=== PATIENT | male | born 1950 | race Caucasian/White ===

== ENCOUNTER 2020-11-02 09:07 | Day surgery (SDC) | payer OTHER ==
[~2020-11-02] VITALS: Ht 182.9 cm; Wt 118.0 kg
[~2020-11-02 09:07] MED LIST: AMLO10 PO; ATOR40TA PO; Actos45 MG PO; Aspir 8181 MG PO; GLUCOPHAGE1000 M1 PO; LISI20 PO; MAGNESIUM OXID500 MG PO; TRAZ50 PO; ZESTORETIC 20-1 EAC1 PO
--- NOTE | 2020-11-02 12:29 | NUR ---
PATIENT ARRIVED TO [facility] RO[facility] A&O. RIGHT RADIAL SITE SOFT AND NONTEMNDER. TR BAND IN PLACE WITH 12CC AIR. HAND WARM TO TOUCH. WRIST BOARD IN PLACE. PATIEN HAS CHRONIC RIGHT SHOULDER PAIN.
--- NOTE | 2020-11-02 13:04 | NUR ---
PATIENT UP TO REST ROOM. RIGHT RADIAL SITE REMAINS STABLE
--- NOTE | 2020-11-02 13:52 | NUR ---
ASSUMED CARE OF PATIENT FROM SHALINI SARAH RN. ANGELITOAR RECEIVED. VVS. PATIENT IN A RECLINER ON THE MONITOR AND NO PAIN NOTED. TR BAND IN PLACE TO THE RIGHT RADIAL. MEENA IN PLACE TO THE RIGHT FOREARM (VENOUS SITE). STABLE, NO BLEEDING NOTED. CALL LIGHT IN REACH.
--- NOTE | 2020-11-02 14:07 | NUR ---
BEGAN TAKING AIR OUT OF THE TR BAND AT 1400. NO BLEEDING NOTED. REVIEWED ALL DISCHARGE INSTRUCTIONS REVIEWED WITH THE PATIENT AND HE SIGNED ALL PAPERWORK AND COPIES GIVEN TO THE PATIENT INCLUDING FOLLOW UP APPOINTMENT. THE SURGEONS OFFICE FROM [facility] WILL CALL TO SET UP AN APPOINTMENT FOR HIS SURGICAL CONSULT.
--- NOTE | 2020-11-02 14:56 | NUR ---
PATIENT UP AND DRESSED SELF. PIV REMOVED AND PRESSURE DRESSING APPLIED. TR BAND REMOVED AND SITE CLEANED AND CLOTH DOT APPLIED. RIGHT BRACHIAL SITE DRESSING CHANGED AND CLOTH DOT APPLIED TO THE RIGHT BRACHIAL SITE ALSO. PATIENT TOLERATED WELL. ALL BELONGINGS GATHERED. DISCHARGE INSTRUCTIONS IN HAND WITH FOLLOW UP APPOINTMENT. DISCHARGED HOME VIA WHEELCHAIR AT 1515
== END 2020-11-02 16:23 | disposition home or self-care (01) ==
LOC: MHTC 09:07
DX: I25.119 Atherosclerotic heart disease of native coronary artery with unspecified angina pectoris (principal); I10 Essential (primary) hypertension; E11.9 Type 2 diabetes mellitus without complications; E78.00 Pure hypercholesterolemia, unspecified; I49.5 Sick sinus syndrome; G47.33 Obstructive sleep apnea (adult) (pediatric); F12.90 Cannabis use, unspecified, uncomplicated; E66.01 Morbid (severe) obesity due to excess calories; Z79.82 Long term (current) use of aspirin; Z79.84 Long term (current) use of oral hypoglycemic drugs; Z68.34 Body mass index [BMI] 34.0-34.9, adult; Z85.46 Personal history of malignant neoplasm of prostate
CPT/HCPCS: 76937; 85347; 93005; 93010; 93456; 93460; 93571; 99152; 99153; A9270; C1769; C1887; C1894; J0360; J2250; J3010; J7030; J7050; Q9967

== ENCOUNTER 2020-11-03 01:01 | Emergency (ER) | payer OTHER ==
[~2020-11-03] VITALS: Ht 182.9 cm; Wt 113.4 kg
[2020-11-03 01:46] LABS: BASOPHILS ABSOLUTE AUTO 0.05 K/mm3 (0.00-0.23); BASOPHILS PERCENT AUTO 1 % (0-2); EOSINOPHILS ABSOLUTE AUTO 0.38 K/mm3 (0.00-0.68); EOSINOPHILS PERCENT AUTO 4 % (0-6); Hematocrit 36.2 % (37.0-53.0); Hemoglobin 12.3 g/dL (13.5-17.5); IMMATURE GRAN ABSOLUTE AUTO 0.05 K/mm3 (0.00-0.10); IMMATURE GRAN PERCENT AUTO 1 % (0-1); LYMPHOCYTES ABSOLUTE AUTO 0.57 K/mm3 (0.84-5.20); LYMPHOCYTES PERCENT AUTO 6 % (21-46); MONOCYTES ABSOLUTE AUTO 0.66 K/mm3 (0.16-1.47); MONOCYTES PERCENT AUTO 7 % (4-13); Mean Corpuscular HGB 29.2 pg (26.0-34.0); Mean Corpuscular Volume 86 fL (80-100); Mean Platelet Volume 9.5 fL (9.1-12.4); NEUTROPHILS ABSOLUTE AUTO 7.29 K/mm3 (1.96-9.15); NEUTROPHILS PERCENT AUTO 81 % (41-73); Platelet Count 298 K/mm3 (150-400); RDW Coefficient Variation 13.5 % (11.7-14.2); RDW Standard Deviation 42.6 fL (35.1-46.3); Red Blood Cell Count 4.21 M/mm3 (4.30-5.90)
[2020-11-03 02:17] LABS: Alanine Aminotransfer (ALT/SGP 61 U/L (12-78); Albumin, Blood 3.7 g/dL (3.4-5.0); Albumin/Globulin Ratio 1.1 (0.8-1.8); Alk Phos 114 U/L (50-136); Anion Gap 7 mmol/L (6-16); Aspartate Aminotrans (AST/SGOT 63 U/L (12-37); Bilirubin, Total 0.2 mg/dL (0.1-1.0); Blood Urea Nitrogen 22 mg/dL (8-24); Bun/Creatinine Ratio 22.3 (12.0-20.0); CO2, Blood 26 mmol/L (21-32); Calcium, Blood 8.6 mg/dL (8.5-10.1); Chloride, Blood 101 mmol/L (98-108); Creatinine, Blood 0.99 mg/dL (0.60-1.20); Globulin, Blood 3.4 g/dL (2.2-4.0); Glomerular Filtration Rate >60 (60-); Glucose, Blood 350 mg/dL (70-99); Potassium, Blood 3.3 mmol/L (3.5-5.5); Sodium, Blood 134 mmol/L (136-145); Total Protein, Blood 7.1 g/dL (6.4-8.2)
== END 2020-11-03 03:57 | disposition home or self-care (01) ==
LOC: ER 01:01
PROVIDERS: Emergency Medicine
DX: R07.9 Chest pain, unspecified (principal); Z79.84 Long term (current) use of oral hypoglycemic drugs; Z79.82 Long term (current) use of aspirin; Z79.899 Other long term (current) drug therapy
CPT/HCPCS: 36415; 80053; 84484; 85025; 93005; 93010; 96374; 96375; 99285-25; J3010

== ENCOUNTER 2020-11-08 01:57 | Emergency (ER) | payer OTHER ==
[~2020-11-08] VITALS: Ht 182.9 cm; Wt 115.7 kg
[2020-11-08 02:24] LABS: BASOPHILS ABSOLUTE AUTO 0.04 K/mm3 (0.00-0.23); BASOPHILS PERCENT AUTO 1 % (0-2); EOSINOPHILS ABSOLUTE AUTO 0.43 K/mm3 (0.00-0.68); EOSINOPHILS PERCENT AUTO 6 % (0-6); Hematocrit 36.9 % (37.0-53.0); Hemoglobin 12.6 g/dL (13.5-17.5); IMMATURE GRAN ABSOLUTE AUTO 0.03 K/mm3 (0.00-0.10); IMMATURE GRAN PERCENT AUTO 0 % (0-1); LYMPHOCYTES ABSOLUTE AUTO 1.17 K/mm3 (0.84-5.20); LYMPHOCYTES PERCENT AUTO 16 % (21-46); MONOCYTES ABSOLUTE AUTO 0.69 K/mm3 (0.16-1.47); MONOCYTES PERCENT AUTO 10 % (4-13); Mean Corpuscular HGB 29.8 pg (26.0-34.0); Mean Corpuscular HGB Conc 34.1 g/dL (31.5-36.5); Mean Corpuscular Volume 87 fL (80-100); Mean Platelet Volume 9.6 fL (9.1-12.4); NEUTROPHILS ABSOLUTE AUTO 4.82 K/mm3 (1.96-9.15); NEUTROPHILS PERCENT AUTO 67 % (41-73); Platelet Count 319 K/mm3 (150-400); RDW Coefficient Variation 13.5 % (11.7-14.2); Red Blood Cell Count 4.23 M/mm3 (4.30-5.90); White Blood Cell Count 7.18 K/mm3 (4.00-11.30)
[2020-11-08 03:00] LABS: Anion Gap 8 mmol/L (6-16); Blood Urea Nitrogen 19 mg/dL (8-24); Bun/Creatinine Ratio 19.9 (12.0-20.0); CO2, Blood 26 mmol/L (21-32); Calcium, Blood 9.2 mg/dL (8.5-10.1); Chloride, Blood 102 mmol/L (98-108); Creatinine, Blood 0.95 mg/dL (0.60-1.20); Glomerular Filtration Rate >60 (60-); Glucose, Blood 211 mg/dL (70-99); Potassium, Blood 3.7 mmol/L (3.5-5.5); Sodium, Blood 136 mmol/L (136-145)
== END 2020-11-08 05:22 | disposition home or self-care (01) ==
LOC: ER 01:57
PROVIDERS: Student in an Organized Health Care Education/Training Program
DX: R07.9 Chest pain, unspecified (principal); Z79.82 Long term (current) use of aspirin; Z79.899 Other long term (current) drug therapy
CPT/HCPCS: 36415; 71045; 80048; 84484; 85025; 93005; 93010; 99285-25; A9270

== ENCOUNTER → 2020-11-12 | Outpatient (CLI) | payer OTHER | LOC: LAB 13:55 → LAB SHORT 13:55 | DX: R21 Rash and other nonspecific skin eruption (principal); L30.8 Other specified dermatitis | CPT/HCPCS: 88312 ==

== ENCOUNTER 2021-10-11 05:26 | Inpatient (IN) | payer OTHER ==
[~2021-10-11] VITALS: Ht 182.9 cm; Wt 116.0 kg
[2021-10-11] MEDS ORDERED: LISI20 PO (05:47)
[2021-10-11] MEDS ORDERED: FUROSEMIDE40 MG PO (05:48)
[2021-10-11 05:54] LABS: BASOPHILS ABSOLUTE AUTO 0.06 K/mm3 (0.00-0.23); BASOPHILS PERCENT AUTO 1 % (0-2); EOSINOPHILS PERCENT AUTO 7 % (0-6); Hematocrit 43.3 % (37.0-53.0); Hemoglobin 14.9 g/dL (13.5-17.5); IMMATURE GRAN ABSOLUTE AUTO 0.02 K/mm3 (0.00-0.10); IMMATURE GRAN PERCENT AUTO 0 % (0-1); LYMPHOCYTES ABSOLUTE AUTO 1.39 K/mm3 (0.84-5.20); LYMPHOCYTES PERCENT AUTO 20 % (21-46); MONOCYTES ABSOLUTE AUTO 0.55 K/mm3 (0.16-1.47); MONOCYTES PERCENT AUTO 8 % (4-13); Mean Corpuscular HGB 29.6 pg (26.0-34.0); Mean Corpuscular HGB Conc 34.4 g/dL (31.5-36.5); Mean Corpuscular Volume 86 fL (80-100); Mean Platelet Volume 10.2 fL (9.1-12.4); NEUTROPHILS ABSOLUTE AUTO 4.47 K/mm3 (1.96-9.15); NEUTROPHILS PERCENT AUTO 64 % (41-73); Platelet Count 317 K/mm3 (150-400); RDW Coefficient Variation 13.5 % (11.7-14.2); RDW Standard Deviation 41.5 fL (35.1-46.3); Red Blood Cell Count 5.04 M/mm3 (4.30-5.90); White Blood Cell Count 6.99 K/mm3 (4.00-11.30)
[2021-10-11 06:09] LABS: Albumin, Blood 3.9 g/dL (3.4-5.0); Albumin/Globulin Ratio 1.2 (0.8-1.8); Bilirubin, Total 0.4 mg/dL (0.1-1.0); Bun/Creatinine Ratio 21.8 (12.0-20.0); Calcium, Blood 9.2 mg/dL (8.5-10.1); Creatinine, Blood 1.01 mg/dL (0.60-1.20); Globulin, Blood 3.3 g/dL (2.2-4.0); Potassium, Blood 3.8 mmol/L (3.5-5.5); Total Protein, Blood 7.2 g/dL (6.4-8.2)
[2021-10-11 07:51] LABS: Anti-Xa UFH, PHA Monitoring <0.10 IU/mL; International Normalized Ratio 0.93; Prothrombin Time Results 9.8 Sec (9.7-11.5)
--- NOTE | 2021-10-11 10:10 | NUR ---
14 FR CATH PLACEMENT IN POT PRESS OPERATOR, POSITIVE RETURN OF CLR YELLOW URINE, 10 CC NS INSTILLED IN BALLOON, PT TOLERATED WELL. UA SPECIMEN SENT TO LAB POST INSERTION.
[2021-10-11 10:18] LABS: Source, Urine Foley catheter
[2021-10-11 10:21] LABS: Appearance, Urine Hazy (Clear); Bilirubin, Urine Neg (Neg); Blood, Urine 1+ (Neg); Color, Urine Yellow (P-Yellow); Glucose Qualitative, Urine Neg (Neg); Ketones, Urine Neg (Neg); Leukocyte Esterase, Urine Neg (Neg); Nitrite, Urine Neg (Neg); Protein, Urine Neg (Neg); Specific Gravity, Urine 1.005 (1.003-1.022); Urobilinogen, Urine NORM (Normal); pH, Urine 6.5 (5.0-8.0)
[2021-10-11 10:47] LABS: Red Blood Cells, Urine 0-2 /hpf (0-2); Squamous Epithelial Cells Rare /hpf (Few); White Blood Cells, Urine 0-2 /hpf (0-5)
[2021-10-11 10:48] LABS: Bacteria Rare /hpf
--- NOTE | 2021-10-11 11:55 | NUR ---
PT ARRIVED FROM MONITORING ENGINEER AT 11:28, ON NITRO DRIP RUNNING AT 10MCG, PT HAD VOMITED UP HIS BRILINTA, PRN ZOFRAN GIVEN. ANGIO SEAL PLACED IN RT GROIN, NO HEMATOMA, BUT SCANT BLEEDING NOTED AT INSERTION SITE.
--- NOTE | 2021-10-11 18:44 | NUR ---
SUMMARY NEURO; WNL A/O X4 LUNGS; WNL CARDIAC; ON ESMOLOL DRIP AT 200, NITRO AT 130, PRN PO HYDRALAZINE, CLONIDINE PATCH ON LEFT SHOULDER. ANGIO SEAL ON RT FEM. SCANT BLEEDING NOTED, NO HEMATOMA. WEAK BLE PULSES. STENT PLACED TODAY. HX OF CAD, CABG IN 2020, NSTEMI. TELEMETRY IRREGULAR HR WITH PAC'S. GI; N&V ; DIXON IN PLACE, CLEAR URINE
--- NOTE | 2021-10-11 19:00 | NUR ---
ASSUMED CARE OF PT @1900. PT RESTING IN BED. HOB ELEVATED TO 30 DEGREES. DENIES PAIN OR SOB. PT STATES HE IS VERY NAUSEOUS. HR 60-70s. NITROGLYCERINE INFUSING @130MCG/MIN. ESMOLOL INFUSING AT 200MCG/KG/MIN. PERIPHERAL IVs TWO 20GA IN LEFT FOREARM. SCDs IN PLACE AND ON. DIXON CATHETER PATENT AND DRAINING CLEAR YELLOW URINE TO GRAVITY. RIGHT GROIN SITE HAS INTACT CLEAR TEGADERM WITH NO SIGNS OF BLEEDING OR HEMATOMA. SEE FULL ASSESSMENT.
--- NOTE | 2021-10-12 02:02 | NUR ---
UPDATE CALLED DR MCCORMICK REGARDING PT C/O MODERATE TO SEVERE "HEARTBURN". NEW ORDERS PROVIDED FOR GI COCKTAIL PROVIDED. NITRO AND ESMOLOL WAS INFUSING AND IS NOW ON SB DUE TO BP 94/44, MAP 64. NO C/O CHEST PAIN, ACID REFLEX SUBSIDED, PT SLEEPING COMFORTABLY.
[2021-10-12 03:33] LABS: Mean Corpuscular HGB 29.4 pg (26.0-34.0); Mean Corpuscular HGB Conc 34.1 g/dL (31.5-36.5); Mean Corpuscular Volume 86 fL (80-100); Mean Platelet Volume 9.7 fL (9.1-12.4); Platelet Count 318 K/mm3 (150-400); RDW Coefficient Variation 13.6 % (11.7-14.2); RDW Standard Deviation 42.6 fL (35.1-46.3); Red Blood Cell Count 4.77 M/mm3 (4.30-5.90); White Blood Cell Count 12.04 K/mm3 (4.00-11.30)
[2021-10-12 03:57] LABS: Bun/Creatinine Ratio 16.5 (12.0-20.0); Creatinine, Blood 1.15 mg/dL (0.60-1.20); Potassium, Blood 3.9 mmol/L (3.5-5.5)
--- NOTE | 2021-10-12 05:52 | NUR ---
END OF SHIFT SUMMARY PT WAS ABLE TO SLEEP FOR MOST OF THE NIGHT AND WAS UP AT AROUND 0530. PT IS A/O X4 AND ABLE TO MAKE HIS NEEDS KNOWN, LITTLE TRAVERSE. SPO2 >95% ON RA, OCCATIONAL PRODUCTIVE COUGH NOTED. AFEBRILE. BP LABILE ALL SHIFT. SBP 90-180, SEE FLOWSHEET FOR NITRO AND ESMOLOL TITRATIONS, RIGHT NOW NITRO ON SB, AND ESMOLOL AT 25MCG/KG/MIN. HR 50-80'S, IRREGULARLY IRREGULAR RHYTHM, EKG DONE THIS AM. PT NAUSEAS T/O SHIFT; PRN PHENEGRAN HELPFUL WITH SEVARITY BUT PT CONT TO NOT HAVE AN APPETITE AND MILDLY NAUSEAS; C/O ACID REFLEX TWICE, GI COCKTAIL GIVEN TWICE AND HELFPUL. DIXON IN PLACE AND DRAINING TO GRAVITY; 1600ML OUT. RT GROIN SITE WITH ANGIOSEAL SHOWED NO SIGNS OF BLEEDING OR HEMATOMA; DRESSING C/D/I. WILL REPORT TO AM RN WHEN AVAILABLE.
--- NOTE | 2021-10-12 07:11 | NUR ---
TOOK OVER CARE OF PT AT 0700, PT ON RA, NO DRIPS CURRENTLY RUNNING.
--- NOTE | 2021-10-12 17:49 | NUR ---
SUMMARY NEURO; WNL A/O X4 LUNGS; CLEAR WITH INTERMITTENT PRODUCTIVE COUGH, CLEAR SPUTUM CARDIAC; IRREGULAR HEART RHYTHM CONTINUES, ESMOLOL OFF SINCE AROUND 0700, TWO PRN PO DOSES OF HYDRALAZINE GIVEN. BP HAS TRENDED UP THROUGHOUT THE DAY. PT WAS BRADYCARDIC AFTER MORNING ORAL ANTIHYPERTENSIVE MEDICATIONS INTO THE 40'S. WEAK PULSES BLE, BUT EXTREMETIES WARM AND CAP REFILL NORMAL. NO SIGNS OF BLEEDING AT ACCESS SIT ON RIGHT FEM. SKIN; INTACT, PT EDUCATED AND VERBALIZED UNDERSTANDING OF REPOSITIONING. PT ABLE TO REPOSITIONS SELF. PT COLOR HAS IMPROVED FROM YESTERDAY WHERE IT WAS VERY PALE. GI: LOW APPETITE, DECREASED NAUSEA FROM YESTERDAY BUT STILL PRESENT. : DIXON STILL IN PLACE, DRAINING CLEAR URINE. GI;
--- NOTE | 2021-10-12 23:13 | NUR ---
ASSUMED CARE AT 1900 PT LAYING IN BED WATCHING TV AT SHIFT CHANGE. PT IS A/O X4 AND ABLE TO MAKE HIS NEEDS KNOWN; USES CALL LIGHT LIGHT APPROPRIATLY; IS A STAND BY ASSIST DURING TRANSFERS OUT OF BED FOR CORD MANAGMENT AND OCCATIONAL DIZZINESS. SPO2 >95% ON RA. HR 80'S. SBP 170-190'S; PRN IV HYDROLAZINE GIVEN, PLAN TO GIVE SCHEDULED METOPROLOL; OCCATIONAL PVC'S NOTED; ANGIOSEAL TO RT GROIN SHOWS NO SIGNS OF BLEEDING OR HEMATOMA, DRESSING C/D/I. C/O NAUSEA, PRN PHENEGRAN GIVE. DIXON IN PLACE AND DRAINING TO GRAVITY. SEE SHIFT ASSESSMENT FOR FULL ASSESSMENT.
--- NOTE | 2021-10-13 05:33 | NUR ---
UPDATE PT CONT TO BE HTN AFTER GIVING PO AND IV HYDROLAZINE SEVERAL TIMES WITH CONTINOUS SBP 200 NOW. PT STARTING TO HAVE INCREASE NAUSEA NOW TOO. NITRO GTT RESTRATED AT 20MCG/MIN.
--- NOTE | 2021-10-13 06:16 | NUR ---
END OF SHIFT SUMMARY PT SLEPT FOR MOST OF THE NIGHT. HE IS A/O X4 AND ABLE TO MAKE HIS NEED KNOWN. SPO2 >94% ON RA; OCCATIONALLY DYSPNIC WITH EXERTION. HR 70-80'S; IRREGULAR RHYTHM. BP CHALLENGING TO KEEP SBP BELOW 160; PT HAS A CLONIDINE PATCH ON, STARTED NITRO PASTE, GAVE SCHEDULED PM METOPROLOL, ALONG WITH 3 DOSES OF PRN IV HYDROLAZINE AND 3 DOSES OF PRN PO HYDROLAZINE, EVENTUALLY PT SBP SUSTAINED OVER 200 AND NITRO GTT STARTED, NITRO INFUSING AT 25MCG/MIN; BP NOW 156/67 MAP 93. WITH INCREASED HTN, PT C/O INCREASE NAUSEA AGAIN, PRN PHENEGRAN GIVEN AND HELPFUL. DIXON IN PLACE AND DRAINING TO GRAVITY; 850ML OUT. RT GROIN SITE SHOWS NO SIGNS OF BLEEDING OR HEMATOMA, DRESSING C/D/I. WILL REPORT TO AM RN WHEN AVAILABLE.
--- NOTE | 2021-10-13 08:10 | NUR ---
TOOK OVER CARE OF PT AT 0700, PT RESTING ON RA, NITRO DRIP ON STANDBY.
--- NOTE | 2021-10-13 18:52 | NUR ---
SUMMARY NITRO DRIP WAS OFF AROUND 7AM, PT BECAME HYPERTENSIVE SO AM MEDS GIVEN EARLY. BP WAS CONTROLLED UNTIL ABOUT 1400 WHERE SYSTOLIC WENT OVER 160. PRN PO 25MG HYDRALAZINE GIVEN, BP CONTINUED TO RISE TO OVER 180 SYTOLIC, THEN 20MG IV HYDRALAZINE GIVEN. PT DID SIMULARLY YESTERDAY WELL. NAUSES AND C/O PRESSURE BUT NO CHEST PAIN WHEN BP'S ARE ELEVATED. DIXON REMOVED TODAY WITH NO INCIDENT. OTHERWISE NO CHANGES FROM YESTERDAY.
--- NOTE | 2021-10-13 19:05 | NUR ---
ASSUMED CARE. REPORT RECEIVED FROM DAYSHIFT RN. PT RESTING QUIETLY IN BED ATT. ALERT AND ORIENTED, ON ROOM AIR. IV ACCESS IN L/WRIST AND L/FOREARM. PT DENIES ANY NEEDS ATT. VITAL SIGNS STABLE, WILL CONTINUE TO MONITOR.
[2021-10-14 03:20] LABS: Hematocrit 39.7 % (37.0-53.0); Hemoglobin 13.3 g/dL (13.5-17.5); Mean Corpuscular HGB 29.2 pg (26.0-34.0); Mean Corpuscular HGB Conc 33.5 g/dL (31.5-36.5); Mean Corpuscular Volume 87 fL (80-100); Mean Platelet Volume 9.5 fL (9.1-12.4); Platelet Count 258 K/mm3 (150-400); RDW Coefficient Variation 13.9 % (11.7-14.2); Red Blood Cell Count 4.56 M/mm3 (4.30-5.90)
[2021-10-14 03:40] LABS: Bun/Creatinine Ratio 20.8 (12.0-20.0); Calcium, Blood 8.8 mg/dL (8.5-10.1); Creatinine, Blood 1.06 mg/dL (0.60-1.20); Potassium, Blood 3.3 mmol/L (3.5-5.5)
--- NOTE | 2021-10-14 06:32 | NUR ---
SHIFT SUMMARY. PT RESTED QUIETLY IN BED THROUGHOUT SHIFT. 1 PRN DOSE OF HYDRALAZINE GIVEN AT BEGINNING OF SHIFT, OTHERWISE NOT REQUIRED. VS STABLE, NO ACUTE EVENTS. SEE SHIFT ASSESSMENT FOR FURTHER DETAILS. WILL CONTINUE TO MONITOR AND REPORT OFF TO DAYSHIFT RN.
--- NOTE | 2021-10-14 07:19 | NUR ---
ASSUMED CARE: PT IS RESTING IN BED AT TIME OF BEDSIDE REPORT. PT SATTING >95% ON RA, SINUS RHTHYM IN 70'S, AND SBP IN 140'S THIS MORNING. NO ACUTE NEEDS/DISTRESS AT THIS MOMENT.
--- NOTE | 2021-10-14 08:51 | NUR ---
REVIEWED ASSOCIATE DEAN OF STUDENTS'S HEAD TO TOE ASSESSMENT AND AGREE
--- NOTE | 2021-10-14 09:36 | NUR ---
DR CESAR STATES THIS PT WAS NOT SIGNED OFF TO HER. CALL TO DR FELTON WHO STATES THE PT WILL BE SEEN BY DR MIX AND PT CAN LIKELY GO HOME IF STABLE
--- NOTE | 2021-10-14 12:30 | NUR ---
DR MIX CAME TO SEE PT AND STATES OK TO GO HOME WITH FOLLOW UP WITH DR FELTON AND IF OK WITH HOSPITALIST. CALL TO DR JONES WHO STATES WILL REVIEW AND PLACE ORDERS.
[2021-10-14] MEDS ORDERED: CATAPRES-TTS 11 EAC1 TOP (13:11)
[2021-10-14] MEDS ORDERED: TICA90TA PO (13:12)
[2021-10-14] MEDS ORDERED: METO50ER PO (13:12)
[2021-10-14] MEDS ORDERED: HYDR10 PO (13:13)
--- NOTE | 2021-10-14 13:40 | NUR ---
DISCHARGE: PT SATTING >95% ON RA, HR IN 60'S AND IRREGULAR WITH PVC'S, AND SBP SUSTAINED IN 150'S W/O CHEST PAIN/DIZZINESS REPORTED BY PT. PT EXPRESSED UNDERSTANDING OF DC INSTRUCTIONS AND AGREED TO PLAN. IV IN LFA AND LW WERE REMOVED W/ CATHETER TIPS INTACT AND SITE W/O REDNESS/SWELLING, PRESSURE DRESSING APPLIED. PT ESCORTED TO POV VIA WHEELCHAIR BY STUDENT NURSE AND RECEIVED BY TO HOME.
== END 2021-10-14 12:30 | disposition home or self-care (01) | DRG 247 ==
LOC: ER 05:26 → PCU 05:27 → ICUW 11:33
PROVIDERS: Emergency Medicine; Internal Medicine; Internal Medicine Cardiovascular Disease; Nurse Practitioner Acute Care; Student in an Organized Health Care Education/Training Program; ADMIT Internal Medicine Cardiovascular Disease
PROC: 027034Z Dilation of Coronary Artery, One Artery with Drug-eluting Intraluminal Device, Percutaneous Approach (ICD-10-PCS; principal; 2021-10-11)
PROC: B2181ZZ Fluoroscopy of Left Internal Mammary Bypass Graft using Low Osmolar Contrast (ICD-10-PCS; 2021-10-11)
PROC: B2131ZZ Fluoroscopy of Multiple Coronary Artery Bypass Grafts using Low Osmolar Contrast (ICD-10-PCS; 2021-10-11)
PROC: B2111ZZ Fluoroscopy of Multiple Coronary Arteries using Low Osmolar Contrast (ICD-10-PCS; 2021-10-11)
DX: I21.4 Non-ST elevation (NSTEMI) myocardial infarction (principal); I25.10 Atherosclerotic heart disease of native coronary artery without angina pectoris; I16.0 Hypertensive urgency; I10 Essential (primary) hypertension; I48.91 Unspecified atrial fibrillation; E11.9 Type 2 diabetes mellitus without complications; E87.6 Hypokalemia; E78.5 Hyperlipidemia, unspecified; I25.2 Old myocardial infarction; Z95.1 Presence of aortocoronary bypass graft; Z90.79 Acquired absence of other genital organ(s); Z98.890 Other specified postprocedural states; Z79.82 Long term (current) use of aspirin; Z79.84 Long term (current) use of oral hypoglycemic drugs; Z79.899 Other long term (current) drug therapy
CPT/HCPCS: 36415; 71045; 76937; 80048; 80053; 81001; 82947; 84484; 85025; 85027; 85347; 85520; 85610; 85730; 92978; 93005; 93010; 93306; 93458; 93459; 99152; 99153; 99285-25; A9270; C1725; C1753; C1760; C1769; C1874; C1887; C1894; C9604; J0360; J1644; J1650; J1940; J2250; J2405; J2550; J2765; J3010; J7030; J7040; Q9967

== ENCOUNTER → 2022-04-25 | Outpatient (CLI) | payer OTHER ==
[~2022-04-25] MED LIST changes: +CATAPRES-TTS 11 EAC1 TOP; +FUROSEMIDE40 MG PO; +HYDR10 PO; +METO50ER PO; +TICA90TA PO
[2022-04-25 10:58] LABS: Bun/Creatinine Ratio 15.6 (12.0-20.0); Calcium, Blood 9.1 mg/dL (8.5-10.1); Creatinine, Blood 0.9 mg/dL (0.60-1.20); Potassium, Blood 3.7 mmol/L (3.5-5.5)
== END | disposition home or self-care (01) ==
LOC: LAB 07:17 → LAB SHORT 07:17
PROVIDERS: Physician Assistant
DX: E78.5 Hyperlipidemia, unspecified (principal); E11.42 Type 2 diabetes mellitus with diabetic polyneuropathy
CPT/HCPCS: 36415; 80048

== ENCOUNTER → 2022-08-29 | Outpatient (CLI) | payer OTHER ==
[2022-09-04 09:43] LABS: Stool Occult Bld Immuno 1 Negative (NEGATIVE)
== END | disposition home or self-care (01) ==
LOC: LAB 08:20 → LAB SHORT 08:20
PROVIDERS: Physician Assistant
DX: Z12.11 Encounter for screening for malignant neoplasm of colon (principal); Z12.12 Encounter for screening for malignant neoplasm of rectum
CPT/HCPCS: G0328

== ENCOUNTER 2023-03-02 09:20 | Observation (INO) | payer OTHER ==
[~2023-03-02] VITALS: Ht 182.9 cm; Wt 260.0 kg
[~2023-03-02 09:20] MED LIST changes: +ELIQUIS5 M2 PO; +METO50 PO; +PANT40 PO; +PLAVIX75 MG PO; +XARELTO20 MG PO
[2023-03-02 09:58] LABS: BASOPHILS ABSOLUTE AUTO 0.06 K/mm3 (0.00-0.23); BASOPHILS PERCENT AUTO 1 % (0-2); EOSINOPHILS ABSOLUTE AUTO 0.34 K/mm3 (0.00-0.68); EOSINOPHILS PERCENT AUTO 5 % (0-6); Hematocrit 38.6 % (37.0-53.0); Hemoglobin 13.3 g/dL (13.5-17.5); IMMATURE GRAN ABSOLUTE AUTO 0.02 K/mm3 (0.00-0.10); IMMATURE GRAN PERCENT AUTO 0 % (0-1); LYMPHOCYTES ABSOLUTE AUTO 1.03 K/mm3 (0.84-5.20); LYMPHOCYTES PERCENT AUTO 14 % (21-46); MONOCYTES ABSOLUTE AUTO 0.44 K/mm3 (0.16-1.47); MONOCYTES PERCENT AUTO 6 % (4-13); Mean Corpuscular HGB 29.3 pg (26.0-34.0); Mean Corpuscular HGB Conc 34.5 g/dL (31.5-36.5); Mean Corpuscular Volume 85 fL (80-100); Mean Platelet Volume 9.4 fL (9.1-12.4); NEUTROPHILS PERCENT AUTO 74 % (41-73); Platelet Count 298 K/mm3 (150-400); RDW Coefficient Variation 13.6 % (11.7-14.2); RDW Standard Deviation 41.9 fL (35.1-46.3); Red Blood Cell Count 4.54 M/mm3 (4.30-5.90); White Blood Cell Count 7.29 K/mm3 (4.00-11.30)
[2023-03-02 10:20] LABS: Albumin, Blood 4.2 g/dL (3.4-5.0); Albumin/Globulin Ratio 1.2 (0.8-1.8); Bilirubin, Total 0.4 mg/dL (0.1-1.0); Bun/Creatinine Ratio 17.8 (12.0-20.0); Calcium, Blood 9.4 mg/dL (8.5-10.1); Creatinine, Blood 1.01 mg/dL (0.60-1.20); Globulin, Blood 3.4 g/dL (2.2-4.0); Magnesium, Blood 1.9 mg/dL (1.6-2.4); Potassium, Blood 3.8 mmol/L (3.5-5.5); Total Protein, Blood 7.6 g/dL (6.4-8.2)
[2023-03-02 13:31] VITALS: BP 169/107
[2023-03-02 15:14] VITALS: BP 141/82
--- NOTE | 2023-03-02 17:32 | NUR ---
PT TRANSFERED FROM ED THIS SHIFT. ORIENTED TO THE ROOM. PROVIDED WATER AND DINNER. HIS BED IS IN THE LOW POSITON AND CALL LIGHT IS WITIN REACH PT IS INDEPENDENT IN THE ROOM
[2023-03-02 19:28] VITALS: BP 148/99
[2023-03-03 01:07] LABS: BASOPHILS ABSOLUTE AUTO 0.06 K/mm3 (0.00-0.23); BASOPHILS PERCENT AUTO 1 % (0-2); EOSINOPHILS ABSOLUTE AUTO 0.37 K/mm3 (0.00-0.68); EOSINOPHILS PERCENT AUTO 7 % (0-6); Hematocrit 35.5 % (37.0-53.0); Hemoglobin 11.7 g/dL (13.5-17.5); IMMATURE GRAN ABSOLUTE AUTO 0.01 K/mm3 (0.00-0.10); IMMATURE GRAN PERCENT AUTO 0 % (0-1); LYMPHOCYTES ABSOLUTE AUTO 1.05 K/mm3 (0.84-5.20); LYMPHOCYTES PERCENT AUTO 18 % (21-46); MONOCYTES ABSOLUTE AUTO 0.48 K/mm3 (0.16-1.47); MONOCYTES PERCENT AUTO 8 % (4-13); Mean Corpuscular HGB 28.7 pg (26.0-34.0); Mean Corpuscular Volume 87 fL (80-100); Mean Platelet Volume 9.3 fL (9.1-12.4); NEUTROPHILS ABSOLUTE AUTO 3.75 K/mm3 (1.96-9.15); NEUTROPHILS PERCENT AUTO 66 % (41-73); Platelet Count 239 K/mm3 (150-400); RDW Coefficient Variation 13.7 % (11.7-14.2); RDW Standard Deviation 42.9 fL (35.1-46.3); Red Blood Cell Count 4.08 M/mm3 (4.30-5.90); White Blood Cell Count 5.72 K/mm3 (4.00-11.30)
[2023-03-03 01:33] LABS: Bun/Creatinine Ratio 19.4 (12.0-20.0); Calcium, Blood 8.8 mg/dL (8.5-10.1); Creatinine, Blood 1.03 mg/dL (0.60-1.20); Potassium, Blood 3.7 mmol/L (3.5-5.5)
--- NOTE | 2023-03-03 02:30 | NUR ---
END OF SHIFT SUMMARY PT A&O x4, VSS, AFEBRILE. PT KIND AND COOPERATIVE WITH CARE PROVIDED. PT DENIED CHEST PAIN/PRESSURE, NO SANCHEZ, NO SOB/DIFFICULTIES WITH BREATHING. PT INDEPENDENT WITH ADL's, PT UP AT LISBET, AMBULATES ON HIS OWN. PT APPEARS TO BE SLEEPING WELL OVER NIGHT. CRITICAL LAB VALUE WAS REPORTED AT 0200: PT's TROPONIN LEVEL WAS 122. DR. MCCORMICK WAS NOTIFIED, NO ORDERS WERE PLACED, CONTINUE TO MONITOR. PT ABLE TO MAKE NEEDS KNOWN. CALL LIGHT WITHIN REACH, BED IN LOWEST POSITION.
[2023-03-03 04:23] VITALS: BP 175/86
[2023-03-03 07:27] VITALS: BP 169/106
[2023-03-03 10:26] VITALS: BP 163/102
[2023-03-03] MEDS ORDERED: Isosorbide Mono30 MG PO (10:58)
[2023-03-03] MEDS ORDERED: NITR.4SL SL (10:58)
--- NOTE | 2023-03-03 11:38 | NUR ---
DISCHARGE: PT D/C @1125 INDEPENDENTLY. IV AND TELE REMOVED BY CONDUIT HELPER W/O COMPLICATIONS. PT HAS FOLLOW-UP APT WITH PCP ON MARCH 09, 2023. DR. STEVE OFFICE CALLED PT PRIOR TO DISCHARGE FOR CARDIOLOGY FOLLOW-UP. MEDICATIONS FAXED TO [facility]. NEW AND CHANGED MEDICATIONS EXPLAINED TO PT.
== END 2023-03-03 11:26 | disposition home or self-care (01) ==
LOC: ER 09:20 → MEDS 09:21
PROVIDERS: Student in an Organized Health Care Education/Training Program; ADMIT Internal Medicine
DX: I25.118 Atherosclerotic heart disease of native coronary artery with other forms of angina pectoris (principal); I48.0 Paroxysmal atrial fibrillation; I10 Essential (primary) hypertension; E11.9 Type 2 diabetes mellitus without complications; E78.5 Hyperlipidemia, unspecified; Z95.5 Presence of coronary angioplasty implant and graft; Z79.84 Long term (current) use of oral hypoglycemic drugs; Z79.899 Other long term (current) drug therapy
CPT/HCPCS: 36415; 71045; 80048; 80053; 82947; 83735; 84484; 85025; 93005; 93010; 99285-25; A9270; G0378; J1815

== ENCOUNTER 2023-04-21 06:42 | Inpatient (IN) | payer OTHER ==
[~2023-04-21] VITALS: Ht 182.9 cm; Wt 112.5 kg
[~2023-04-21 06:42] MED LIST changes: +ISOSORBIDE MONO PO; +LISINOPRIL (ZESTRIL) PO; +NITR.4SL SL; +TRAZ100 PO; -TRAZ50 PO
[2023-04-21 07:14] LABS: BASOPHILS ABSOLUTE AUTO 0.04 K/mm3 (0.00-0.23); BASOPHILS PERCENT AUTO 1 % (0-2); EOSINOPHILS ABSOLUTE AUTO 0.37 K/mm3 (0.00-0.68); EOSINOPHILS PERCENT AUTO 6 % (0-6); Hematocrit 37.3 % (37.0-53.0); Hemoglobin 12.3 g/dL (13.5-17.5); IMMATURE GRAN ABSOLUTE AUTO 0.02 K/mm3 (0.00-0.10); IMMATURE GRAN PERCENT AUTO 0 % (0-1); LYMPHOCYTES ABSOLUTE AUTO 0.79 K/mm3 (0.84-5.20); LYMPHOCYTES PERCENT AUTO 13 % (21-46); MONOCYTES ABSOLUTE AUTO 0.47 K/mm3 (0.16-1.47); MONOCYTES PERCENT AUTO 8 % (4-13); Mean Corpuscular HGB 28.4 pg (26.0-34.0); Mean Corpuscular Volume 86 fL (80-100); Mean Platelet Volume 9.3 fL (9.1-12.4); NEUTROPHILS ABSOLUTE AUTO 4.54 K/mm3 (1.96-9.15); NEUTROPHILS PERCENT AUTO 73 % (41-73); Platelet Count 312 K/mm3 (150-400); RDW Coefficient Variation 14.1 % (11.7-14.2); RDW Standard Deviation 43.8 fL (35.1-46.3); Red Blood Cell Count 4.33 M/mm3 (4.30-5.90); White Blood Cell Count 6.23 K/mm3 (4.00-11.30)
[2023-04-21 07:33] LABS: Albumin, Blood 3.7 g/dL (3.4-5.0); Albumin/Globulin Ratio 1.1 (0.8-1.8); Bilirubin, Total 0.2 mg/dL (0.1-1.0); Bun/Creatinine Ratio 21.2 (12.0-20.0); Calcium, Blood 8.8 mg/dL (8.5-10.1); Creatinine, Blood 0.99 mg/dL (0.60-1.20); Globulin, Blood 3.4 g/dL (2.2-4.0); Potassium, Blood 3.7 mmol/L (3.5-5.5); Total Protein, Blood 7.1 g/dL (6.4-8.2)
[2023-04-21 13:47] LABS: Anti-Xa UFH, PHA Monitoring 0.82 IU/mL; International Normalized Ratio 0.93; Prothrombin Time Results 9.8 Sec (9.7-11.5)
[2023-04-21 14:00] VITALS: BP 147/100
[2023-04-21 14:36] VITALS: BP 160/105
[2023-04-21] MEDS ORDERED: METO25 PO (15:48)
[2023-04-21 16:56] VITALS: BP 149/100
--- NOTE | 2023-04-21 18:29 | NUR ---
SHIFT SUMMARY; ASSUMED CARE FROM ER. TRANSFERS TO BED FROM [facility] INDEPENDANTLY. A/A/OX4, DENIES CP OR SOB. CARDIAC CONSULT COMPLETED, PLAN FOR ANGIO ON THURSDAY, LAST ELIQUIS TAKEN 0600 TODAY. HEPARIN INFUSING AT 15UNITS/KG. VSS, WILL CONTINUE TO MONITOR AND TREAT UNTIL CHANGE OF SHIFT.
[2023-04-21 20:16] VITALS: BP 166/98
[2023-04-21 23:55] VITALS: BP 143/82
[2023-04-22] VITALS (7 sets, daily range): BP systolic 125–159; BP diastolic 76–99
[2023-04-22 02:32] LABS: BASOPHILS ABSOLUTE AUTO 0.04 K/mm3 (0.00-0.23); BASOPHILS PERCENT AUTO 1 % (0-2); EOSINOPHILS ABSOLUTE AUTO 0.33 K/mm3 (0.00-0.68); EOSINOPHILS PERCENT AUTO 5 % (0-6); Hematocrit 34.2 % (37.0-53.0); Hemoglobin 11.6 g/dL (13.5-17.5); IMMATURE GRAN ABSOLUTE AUTO 0.03 K/mm3 (0.00-0.10); IMMATURE GRAN PERCENT AUTO 0 % (0-1); LYMPHOCYTES ABSOLUTE AUTO 1.09 K/mm3 (0.84-5.20); LYMPHOCYTES PERCENT AUTO 16 % (21-46); MONOCYTES ABSOLUTE AUTO 0.53 K/mm3 (0.16-1.47); MONOCYTES PERCENT AUTO 8 % (4-13); Mean Corpuscular HGB 28.8 pg (26.0-34.0); Mean Corpuscular HGB Conc 33.9 g/dL (31.5-36.5); Mean Corpuscular Volume 85 fL (80-100); Mean Platelet Volume 9.1 fL (9.1-12.4); NEUTROPHILS ABSOLUTE AUTO 4.88 K/mm3 (1.96-9.15); NEUTROPHILS PERCENT AUTO 71 % (41-73); Platelet Count 280 K/mm3 (150-400); RDW Standard Deviation 43.5 fL (35.1-46.3); Red Blood Cell Count 4.03 M/mm3 (4.30-5.90)
[2023-04-22 02:51] LABS: Albumin, Blood 3.3 g/dL (3.4-5.0); Albumin/Globulin Ratio 1.1 (0.8-1.8); Bilirubin, Total 0.5 mg/dL (0.1-1.0); Bun/Creatinine Ratio 18.4 (12.0-20.0); Calcium, Blood 8.6 mg/dL (8.5-10.1); Creatinine, Blood 0.87 mg/dL (0.60-1.20); Potassium, Blood 3.5 mmol/L (3.5-5.5); Total Protein, Blood 6.3 g/dL (6.4-8.2)
--- NOTE | 2023-04-22 06:28 | NUR ---
SHIFT SUMMARY PT ORIENTED X4, FOND DU LAC. CALM AND COOPERATIVE. FOND DU LAC. AFIB ON TELE WITH RATE CONTROLLED IN THE 60S. DENIES CHEST PAIN OR DISCOMFORT. SLIGHTLY HYPERTENSIVE IN THE 150S. PO MEDS GIVEN SCHEDULED. HEP GTT RUNNING PER EMAR, BOLUS X1 GIVEN OVERNIGHT PER PHARMACY. SLEPT WELL. PLAN FOR HCATH 04/23 PER REPORT. NPO @ 0000 04/23 WILL PASS ON TO DAY RN
--- NOTE | 2023-04-22 17:50 | NUR ---
SHIFT SUMMARY PT IS A&OX4, IND IN THE ROOM, AND CAN MAKE HIS NEEDS KNOWN. HE HAS BEEN AFIB 60'S-80'S ON TELE W/O ANY C/O ANGINA OR CHEST PRESSURE. THE PT DID C/O SOB ONCE TODAY WHEN HE WAS LYING SUPINE. AFTER HE SAT THE HOB TO FOWLERS HE RECOVERED AND FELT BETTER. HE WAS PROVIDED EDUCATION ABOUT SOME OF THE COMMON SIDE EFFECTS W/ CHF. HE STATES HE GETS SOB WHEN LYING FLAT IN BED AT HOME WELL. THE PT HAS BEEN ON RA ALL SHIFT. HE HAS A HEP GTT INFUSING THAT IS BEING MONITORED BY THE PHARMACY, SEE EMAR FOR TITRATIONS. THE PT WILL BE NPO AT 0000 FOR AN ANGIOGRAM 04/23 W/ DR. SERVIN. NO ACUTE EVENTS THIS SHIFT. FIRE IGNITIONS RISK HAS BEEN ASSESSED AND EDUCATION HAS BEEN PROVIDED.
--- NOTE | 2023-04-22 20:57 | NUR ---
NURSING PCU NOC SHIFT: Assumed care of pt at approx 1900. A/O, very pleasant, cooperative w/care. Denies any pain/discomfort at rest or w/exertion. Ambulates independently and w/o difficulty. Skin intact w/no breakdown noted. Tele in place, afib w/HR 70-80's, no c/o CP/pressure, no noted edema. L/S cta t/o, O2 sat upper 90's on RA, respirations shallow, mild dyspnea w/exertion, occ cough producing thin/clear sputum. Abd SNT, BT+, voiding w/o difficulty per pt. PIV x1, hep gtt infusing at 18u/kg/hr (33.5 mls/hr). No s/s of acute distress. NPO at 2400 for scheduled angiogram. Discussed deep breathing exercises w/pt, verbalized and demonstrated understanding. Currently OOB in recliner having a snack and watching TV. Denies any current needs or questions regarding plan of care. Call light in reach, cont to monitor for any changes.
[2023-04-23] VITALS (11 sets, daily range): BP systolic 118–171; BP diastolic 82–146
--- NOTE | 2023-04-23 05:00 | NUR ---
NURSING PCU NOC SHIFT SUMMARY: Pt has done well t/o the NOC. No c/o CP/pressure, hypertensive w/SBP 140-150's, HR controlled w/rate 60-70's while at rest. Pt spent portion of shift OOB in recliner, tolerated well. Continues to remain independent w/only some assistance required for line management. Hep gtt continues to infuse, rate increased as per pharmacy dosing. Next PTT and a.m. labs scheduled for 0600. NPO at 2400 for anticipated angiogram today. Pt denies any current needs regarding plan of care and has only expressed concern regarding spouse at home alone though states they have the needed support at this time. Call light in reach, cont to monitor until rpt is given to CN to assume care. C
[2023-04-23 06:11] LABS: Hematocrit 33.9 % (37.0-53.0); Hemoglobin 11.3 g/dL (13.5-17.5); Mean Corpuscular HGB 28.5 pg (26.0-34.0); Mean Corpuscular HGB Conc 33.3 g/dL (31.5-36.5); Mean Corpuscular Volume 85 fL (80-100); Mean Platelet Volume 9.5 fL (9.1-12.4); Platelet Count 250 K/mm3 (150-400); RDW Coefficient Variation 14.2 % (11.7-14.2); RDW Standard Deviation 43.9 fL (35.1-46.3); Red Blood Cell Count 3.97 M/mm3 (4.30-5.90); White Blood Cell Count 5.75 K/mm3 (4.00-11.30)
[2023-04-23 06:47] LABS: Bun/Creatinine Ratio 19.3 (12.0-20.0); Calcium, Blood 8.9 mg/dL (8.5-10.1); Creatinine, Blood 1.09 mg/dL (0.60-1.20); Potassium, Blood 3.4 mmol/L (3.5-5.5)
--- NOTE | 2023-04-23 10:58 | NUR ---
I TALKED TO DR. STEVE ABOUT HTN POST PROCEDURE HE SAID TO JUST GIVE THE PT HIS AM MEDICATIONS AND THE BP WILL COME DOWN. HE DOES NOT WANT TO DO ANY PRN MEDICATIONS AT THIS TIME.
--- NOTE | 2023-04-23 13:59 | NUR ---
TR BAND'S RECOVERED RIGHT AND LEFT TR BANDS HAVE BEEN DEFLATED AND REMOVED. THE SITES HAVE BEEN CLEANED W/ CHLORHEXIDINE AND A TRANSPARENT TEGADERM DRESSING HAS BEEN PLACED OVER THE RADIAL SITES. ARMS BOARDS ARE IN PLACE. NO HEAMTOMA, TENDERNESS, N/T, BLEEDING.
--- NOTE | 2023-04-23 17:16 | NUR ---
SHIFT SUMMARY PT IS A&OX4, AND CALLS CARLEE. AT ABOUT 0700 THIS MORNING HE LEFT FOR AN ANGIOGRAM. HE CAME BACK TO THE ROOM ABOUT 0940. HE GOT ONE STENT TO THE SVG-RCA. BOTH WRISTS WERE ACCESSED AND THE TR BANDS HAVE BEEN RECOVERED AND TR BANDS ARE IN PLACE. DRESSINGS ARE C/D/I. SITE ARE NONTENDER, SOFT, ARE NOT BLEEDING, AND HAVE SLIGHT OOZIING. ARMBAORDS IN PLACE. ON TELE PT HAS BEEN AFIB 50'S-80'S. HE HAS BEEN ON RA W/O SOB. DR. SERVIN CAME AND SAW THE PT AND STATED THE PT SHOULD BE SAFE TO BE DISCHARGED TOMORROW. THE PLAN IS FOR DISCHARGE TOMORROW. FIRE IGNITION RISK HAS BEEN ASSESSED. EDUCATION HAS BEEN PROVIDED.
[2023-04-24 00:07] VITALS: BP 101/71
[2023-04-24 03:16] VITALS: BP 108/78
--- NOTE | 2023-04-24 03:54 | NUR ---
ASSUMED CARE OF PT AT 0345. PT RESTING IN ROOM AT THIS TIME. BED IN LOW POSITION, CALL LIGHT WITHIN REACH.
[2023-04-24 04:41] LABS: BASOPHILS ABSOLUTE AUTO 0.05 K/mm3 (0.00-0.23); BASOPHILS PERCENT AUTO 1 % (0-2); EOSINOPHILS ABSOLUTE AUTO 0.28 K/mm3 (0.00-0.68); EOSINOPHILS PERCENT AUTO 4 % (0-6); Hematocrit 37.7 % (37.0-53.0); Hemoglobin 12.4 g/dL (13.5-17.5); IMMATURE GRAN ABSOLUTE AUTO 0.02 K/mm3 (0.00-0.10); IMMATURE GRAN PERCENT AUTO 0 % (0-1); LYMPHOCYTES ABSOLUTE AUTO 0.75 K/mm3 (0.84-5.20); LYMPHOCYTES PERCENT AUTO 11 % (21-46); MONOCYTES ABSOLUTE AUTO 0.59 K/mm3 (0.16-1.47); MONOCYTES PERCENT AUTO 9 % (4-13); Mean Corpuscular HGB 28.1 pg (26.0-34.0); Mean Corpuscular HGB Conc 32.9 g/dL (31.5-36.5); Mean Corpuscular Volume 85 fL (80-100); Mean Platelet Volume 9.4 fL (9.1-12.4); NEUTROPHILS ABSOLUTE AUTO 4.88 K/mm3 (1.96-9.15); NEUTROPHILS PERCENT AUTO 74 % (41-73); Platelet Count 288 K/mm3 (150-400); RDW Coefficient Variation 14.3 % (11.7-14.2); RDW Standard Deviation 44.5 fL (35.1-46.3); Red Blood Cell Count 4.42 M/mm3 (4.30-5.90); White Blood Cell Count 6.57 K/mm3 (4.00-11.30)
[2023-04-24 05:25] LABS: Albumin, Blood 3.4 g/dL (3.4-5.0); Bilirubin, Total 0.5 mg/dL (0.1-1.0); Bun/Creatinine Ratio 20.3 (12.0-20.0); Calcium, Blood 9.1 mg/dL (8.5-10.1); Creatinine, Blood 1.23 mg/dL (0.60-1.20); Globulin, Blood 3.4 g/dL (2.2-4.0); Potassium, Blood 3.6 mmol/L (3.5-5.5); Total Protein, Blood 6.8 g/dL (6.4-8.2)
--- NOTE | 2023-04-24 06:30 | NUR ---
NO ACUTE CHANGES THIS SHIFT. VITALS WNL FOR PATIENT AT THIS TIME. BE DIN LOW POSITION, CALL LIGHT IN REACH. PT EAGER TO GO HOME TODAY. SEE NURSE CHARTING FOR FURTHER INFORMATION.
[2023-04-24] MEDS ORDERED: Isosorbide Mono60 MG PO (07:28)
[2023-04-24] MEDS ORDERED: LISI20 PO (07:28)
[2023-04-24] MEDS ORDERED: METO100ER PO (07:29)
[2023-04-24 07:31] VITALS: BP 118/103
[2023-04-24] MEDS ORDERED: ASPI81CH PO (07:31)
[2023-04-24] MEDS ORDERED: JARDIANCE10 MG PO (07:31)
[2023-04-24] MEDS ORDERED: PANT20 PO (07:32)
--- NOTE | 2023-04-24 07:42 | NUR ---
AM NOTE: PATIENT ALERT AND ORIENTED, DENIES NUMBNESS/TINGLING. PERRLA, GLASSES AT BEDSIDE. ABLE TO MOVE ALL EXTREMITIES EQUALLY. SBA. DENIES OVERALL PAIN. ON ROOM AIR SATING ABOVE 92%. LUNGS SOUNDS CLEAR. PATIENT DENIES COUGH/SOB. EVEN AND UNLABORED RESPIRATIONS. TELE SHOWING AFIB WITH HR 70-80'S. DENIES CHEST PAIN/PRESSURE/PALPITATIONS. BP STABLE. S/P ANGIO WITH BILATERAL RADIAL SITES. SITES WNL, SOFT/NONTENDER. NO SIGNS OF BLEEDING. ARM BOARDS IN PLACE. PPP. DENIES ABDOMINAL PAIN/NAUSEA. BOWEL TONES PRESENT. EATING AND VOIDING WNL. ACHS BLOOD SUGAR CHECKS. PATIENT ABLE TO MOVE IND IN BED. THIS RN EDUCATED ON POST ANGIO RADIAL PRECAUTIONS AND POST CATH CARE WITH NEW STENT PLACEMENT. THIS RN DISCUSSED NEW MEDICATIONS AND FOLLOW UP. PATIENT ABLE TO VERBALIZE INSTRUCTIONS BACK TO THIS RN. CALL LIGHT IN REACH. POSSIBLE DC THIS AFTERNOON, PATIENT STATES HIS FAMILY WOULD BE ABLE TO PICK HIM UP AFTER 10 AM. DENIES NEEDS AT THIS TIME.
[2023-04-24 11:10] VITALS: BP 146/89
--- NOTE | 2023-04-24 11:25 | NUR ---
TELE SHOWING PATIENT HAD 26 BEAT RUN OF NONSUSTAINED VTACH. PATIENT SITTING IN RECLINER TALKING ON PHONE WITH FAMILY. DENIES ANY SYMPTOMS. VITAL SIGNS STABLE. DR. NEWMAN CALLED AND UPDATED, NO NEW ORDERS FOR THIS RN TO PLACE.
--- NOTE | 2023-04-24 11:53 | NUR ---
MAG RESULTS CALLED INTO DR. NEWMAN
--- NOTE | 2023-04-24 12:18 | NUR ---
DR. NEWMAN CALLED NURSE STATION, ANGELITA FOR PATIENT TO DISCHARGE. [facility] BY TO DROP OFF ELIQUIS SAMPLE.
--- NOTE | 2023-04-24 12:50 | NUR ---
DISCHARGE: NO ACUTE CHANGES, SEE PREVIOUS NOTES. THIS RN EDUCATED ON DISCHARGE WHICH INCLUDED FOLLOW UP APPOINTMENTS WITH PCP AND CARDIOLOGY - PATIENT TO CALL AND SCHEDULE CARDIOLOGY FOLLOW UP, CARDIAC REHAB REF SENT, STENT CARD, NEW MEDICATIONS, MEDICATIONS THAT HAVE DOSE INCREASE AND WHAT MEDICATIONS TO STOP, RADIAL PRECAUTIONS, AND SIGNS AND SYMPTOMS OF WHEN TO RETURN. IV REMOVED WNL. TELE RETURNED. PATIENT LEFT UNIT WITH ALL PERSONAL BELONGINGS AND DISCHARGE PACKET WHICH INCLUDED STENT CARD AND ELIQUIS SAMPLES FROM [facility].
== END 2023-04-24 12:44 | disposition home or self-care (01) | DRG 246 ==
LOC: ER 06:42 → PCU 06:43 → MEDS 04-22 01:52 → PCU 04-22 02:11
PROVIDERS: Emergency Medicine; Family Medicine; Student in an Organized Health Care Education/Training Program; ADMIT Internal Medicine
PROC: 027034Z Dilation of Coronary Artery, One Artery with Drug-eluting Intraluminal Device, Percutaneous Approach (ICD-10-PCS; principal; 2023-04-23)
PROC: 02703ZZ Dilation of Coronary Artery, One Artery, Percutaneous Approach (ICD-10-PCS; 2023-04-23)
PROC: B2111ZZ Fluoroscopy of Multiple Coronary Arteries using Low Osmolar Contrast (ICD-10-PCS; 2023-04-23)
PROC: B2131ZZ Fluoroscopy of Multiple Coronary Artery Bypass Grafts using Low Osmolar Contrast (ICD-10-PCS; 2023-04-23)
PROC: 4A023N7 Measurement of Cardiac Sampling and Pressure, Left Heart, Percutaneous Approach (ICD-10-PCS; 2023-04-23)
DX: I21.4 Non-ST elevation (NSTEMI) myocardial infarction (principal); I50.43 Acute on chronic combined systolic (congestive) and diastolic (congestive) heart failure; I25.810 Atherosclerosis of coronary artery bypass graft(s) without angina pectoris; I48.19 Other persistent atrial fibrillation; C61 Malignant neoplasm of prostate; Z66 Do not resuscitate; I35.0 Nonrheumatic aortic (valve) stenosis; E11.9 Type 2 diabetes mellitus without complications; I11.0 Hypertensive heart disease with heart failure; E78.5 Hyperlipidemia, unspecified; E66.01 Morbid (severe) obesity due to excess calories; Z95.5 Presence of coronary angioplasty implant and graft; I25.2 Old myocardial infarction; Z79.84 Long term (current) use of oral hypoglycemic drugs; Z79.02 Long term (current) use of antithrombotics/antiplatelets; Z79.01 Long term (current) use of anticoagulants; Z68.34 Body mass index [BMI] 34.0-34.9, adult
CPT/HCPCS: 36415; 71046; 76937; 80048; 80053; 82947; 83735; 83880; 84484; 85025; 85027; 85347; 85520; 85610; 85730; 86850; 86900; 86901; 93005; 93010; 93455; 96365; 96366; 99152; 99153; 99285-25; A9270; C1725; C1769; C1874; C1887; C1894; C9604; G0378; J1644; J2250; J3010; J7030; J7050; Q9967

== ENCOUNTER 2024-04-14 12:27 | Emergency (ER) | payer OTHER ==
[~2024-04-14] VITALS: Ht 188 cm; Wt 104.3 kg
[~2024-04-14 12:27] MED LIST changes: +ASPI81CH PO; +Isosorbide Mono60 MG PO; +JARDIANCE10 MG PO; +METO100ER PO; +METO25 PO; +PANT20 PO
[2024-04-14 12:54] LABS: BASOPHILS ABSOLUTE AUTO 0.05 K/mm3 (0.00-0.23); BASOPHILS PERCENT AUTO 1 % (0-2); EOSINOPHILS ABSOLUTE AUTO 0.17 K/mm3 (0.00-0.68); EOSINOPHILS PERCENT AUTO 2 % (0-6); Hematocrit 44.1 % (37.0-53.0); Hemoglobin 14.8 g/dL (13.5-17.5); IMMATURE GRAN ABSOLUTE AUTO 0.04 K/mm3 (0.00-0.10); IMMATURE GRAN PERCENT AUTO 1 % (0-1); LYMPHOCYTES ABSOLUTE AUTO 1.13 K/mm3 (0.84-5.20); LYMPHOCYTES PERCENT AUTO 15 % (21-46); MONOCYTES ABSOLUTE AUTO 0.55 K/mm3 (0.16-1.47); MONOCYTES PERCENT AUTO 8 % (4-13); Mean Corpuscular HGB 29.2 pg (26.0-34.0); Mean Corpuscular HGB Conc 33.6 g/dL (31.5-36.5); Mean Corpuscular Volume 87 fL (80-100); Mean Platelet Volume 9.4 fL (9.1-12.4); NEUTROPHILS ABSOLUTE AUTO 5.42 K/mm3 (1.96-9.15); NEUTROPHILS PERCENT AUTO 74 % (41-73); Platelet Count 279 K/mm3 (150-400); RDW Coefficient Variation 14.6 % (11.7-14.2); RDW Standard Deviation 46.4 fL (35.1-46.3); Red Blood Cell Count 5.06 M/mm3 (4.30-5.90); White Blood Cell Count 7.36 K/mm3 (4.00-11.30)
[2024-04-14 13:08] LABS: Albumin, Blood 3.9 g/dL (3.4-5.0); Albumin/Globulin Ratio 1.1 (0.8-1.8); Bilirubin, Total 0.4 mg/dL (0.1-1.0); Calcium, Blood 9.1 mg/dL (8.5-10.1); Globulin, Blood 3.5 g/dL (2.2-4.0); Potassium, Blood 4.1 mmol/L (3.5-5.5); Total Protein, Blood 7.4 g/dL (6.4-8.2)
[2024-04-14] MEDS ORDERED: Aspirin 81 MG Chew PO ONE (14:20)
[2024-04-14] MEDS ORDERED: ESCI10 PO (14:47)
[2024-04-14] MEDS ORDERED: JARDIANCE25 MG PO (14:49)
[2024-04-14] MEDS ORDERED: POTA10T PO (14:52)
[2024-04-14 16:00] VITALS: BP 157/89
[2024-04-15] MEDS ORDERED: POTA10T (12:14)
== END 2024-04-14 17:06 | disposition left against medical advice (07) ==
LOC: ER 12:27
PROVIDERS: Physician Assistant
DX: I21.4 Non-ST elevation (NSTEMI) myocardial infarction (principal); E11.9 Type 2 diabetes mellitus without complications; I10 Essential (primary) hypertension; I48.91 Unspecified atrial fibrillation; Z79.82 Long term (current) use of aspirin; Z79.899 Other long term (current) drug therapy
CPT/HCPCS: 71046; 80053; 83735; 84484; 85025; 85379; 93005; 93010; 99285-25; A9270

== ENCOUNTER 2024-04-15 09:07 | Inpatient (IN) | payer OTHER ==
[~2024-04-15] VITALS: Ht 182.9 cm; Wt 115.4 kg
[~2024-04-15 09:07] MED LIST changes: +ESCI10 PO; +JARDIANCE25 MG PO; +POTA10T PO
[2024-04-15 09:32] LABS: BASOPHILS ABSOLUTE AUTO 0.05 K/mm3 (0.00-0.23); BASOPHILS PERCENT AUTO 1 % (0-2); EOSINOPHILS ABSOLUTE AUTO 0.18 K/mm3 (0.00-0.68); EOSINOPHILS PERCENT AUTO 3 % (0-6); Hematocrit 44.8 % (37.0-53.0); Hemoglobin 14.6 g/dL (13.5-17.5); IMMATURE GRAN ABSOLUTE AUTO 0.03 K/mm3 (0.00-0.10); IMMATURE GRAN PERCENT AUTO 0 % (0-1); LYMPHOCYTES ABSOLUTE AUTO 0.74 K/mm3 (0.84-5.20); LYMPHOCYTES PERCENT AUTO 11 % (21-46); MONOCYTES ABSOLUTE AUTO 0.49 K/mm3 (0.16-1.47); MONOCYTES PERCENT AUTO 7 % (4-13); Mean Corpuscular HGB 29.2 pg (26.0-34.0); Mean Corpuscular HGB Conc 32.6 g/dL (31.5-36.5); Mean Corpuscular Volume 90 fL (80-100); Mean Platelet Volume 9.2 fL (9.1-12.4); NEUTROPHILS ABSOLUTE AUTO 5.31 K/mm3 (1.96-9.15); NEUTROPHILS PERCENT AUTO 78 % (41-73); Platelet Count 240 K/mm3 (150-400); RDW Coefficient Variation 14.5 % (11.7-14.2); RDW Standard Deviation 47.6 fL (35.1-46.3)
[2024-04-15 09:53] LABS: Albumin, Blood 3.5 g/dL (3.4-5.0); Bilirubin, Total 0.5 mg/dL (0.1-1.0); Bun/Creatinine Ratio 18.5 (12.0-20.0); Creatinine, Blood 0.97 mg/dL (0.60-1.20); Globulin, Blood 3.4 g/dL (2.2-4.0); Total Protein, Blood 6.9 g/dL (6.4-8.2)
[2024-04-15] MEDS ORDERED: Ondansetron HCl 2 MG / ML 2ML Vial IV PRN (11:05)
[2024-04-15] MEDS ORDERED: FLU VACC TS2024-25(6MOS UP)/PF 45 MCG/0.5 ML SYRINGE IM SCH (11:05)
[2024-04-15 11:58] VITALS: BP 179/97
[2024-04-15] MEDS ORDERED: Insulin Regular 100 UNIT/ML 10ML Vial SC SCH (12:00)
[2024-04-15 12:10] LABS: International Normalized Ratio 0.97; Prothrombin Time Results 10.4 Sec (9.7-11.5)
[2024-04-15 12:11] LABS: Anti-Xa UFH, PHA Monitoring 1.4 IU/mL
[2024-04-15] MEDS ORDERED: MAGNESIUM OXID500 MG PO (12:13)
[2024-04-15] MEDS ORDERED: POTA10T (12:14)
[2024-04-15] MEDS ORDERED: Nitroglycerin 0.4 MG SUBL SL PRN (12:35)
[2024-04-15] MEDS ORDERED: HydrALAZINE HCl 20 MG / ML 1ML Vial IV PRN (12:35)
[2024-04-15 12:50] VITALS: BP 137/98
--- NOTE | 2024-04-15 13:20 | NUR ---
Dr. Blanc here to see the patient.
[2024-04-15 15:07] VITALS: BP 153/93
--- NOTE | 2024-04-15 15:13 | NUR ---
PT IS A NEW ADMIT THIS SHIFT FOR NSTEMI THE PT IS A&OX4, IND IN THE ROOM, AND MAKES HIS NEEDS KNOWN. THE PT HAS SOME CHEST PRESSURE THAT RESOLVED ON ITS OWN. PT IN AFIB, BP STABLE. HE IS ON RA W/ SP02 >93%. THE PT HAD AN ECHO ORDERED. DR. FISCHER, THE CONSULTED HEAD WAITRESS SAW THE PT AND STATED HE WILL NEED A TAVR D/T SEVERE AORTIC STENOSIS. THE PT WAS INJECTED FOR THE RESTING PORTION OF THE STRESS TEST BEFORE THE ORDER WAS D/C'D. DR. FISCHER STATED HE WILL CALL DR. FREDERICK AND DISCUSS THE PT'S CASE. SEE NOTES FOR UPDATES.
--- NOTE | 2024-04-15 17:25 | NUR ---
END OF SHIFT SUMMARY THE PT REMAINS A&OX4, CALLING APPROPRAITELY, SBA FOR LINE MANAGEMENT IN THE ROOM, Q6 CBG, AND HE IS ON A HEART HEALTHY DIET. THE PT WILL BE DISCHARGING IN THE MORNING PER DR. FREDERICK. SEE PREVIOUS NOTE FOR MORE DETAILS.
[2024-04-15 19:42] VITALS: BP 156/86
[2024-04-15] MEDS ORDERED: Apixaban 5 MG Tab PO SCH (21:00)
[2024-04-15] MEDS ORDERED: TraZODone HCl 100 MG Tab PO SCH (21:00)
[2024-04-15] MEDS ORDERED: Acetaminophen 500 MG Tab PO PRN (22:50)
[2024-04-15 23:05] VITALS: BP 174/86
[2024-04-16 00:19] VITALS: BP 162/96
[2024-04-16 03:47] VITALS: BP 173/81
--- NOTE | 2024-04-16 04:14 | NUR ---
UPDATE CALL PLACED TO HOSPITALIST REGARDING PATIENT BEING HYPERTENSIVE SINCE AROUND 0000. PATIENT RECEIVED DOSE OF HYDRALAZINE WITH MINIMAL IMPROVEMENT. PATIENT CONTINUES TO BE HYPERTENSIVE AT THIS TIME. PER HOSPITALIST, GIVE AM DOSE OF METOPROLOL AND AMLODIPINE NOW. PATIENT ASYMPTOMATIC OF BP. ALL OTHER VITALS STABLE.
[2024-04-16 04:24] LABS: BASOPHILS ABSOLUTE AUTO 0.05 K/mm3 (0.00-0.23); BASOPHILS PERCENT AUTO 1 % (0-2); EOSINOPHILS ABSOLUTE AUTO 0.18 K/mm3 (0.00-0.68); EOSINOPHILS PERCENT AUTO 3 % (0-6); Hematocrit 43.2 % (37.0-53.0); Hemoglobin 14.7 g/dL (13.5-17.5); IMMATURE GRAN ABSOLUTE AUTO 0.03 K/mm3 (0.00-0.10); IMMATURE GRAN PERCENT AUTO 1 % (0-1); LYMPHOCYTES ABSOLUTE AUTO 1.04 K/mm3 (0.84-5.20); LYMPHOCYTES PERCENT AUTO 16 % (21-46); MONOCYTES ABSOLUTE AUTO 0.55 K/mm3 (0.16-1.47); MONOCYTES PERCENT AUTO 9 % (4-13); Mean Corpuscular HGB 29.5 pg (26.0-34.0); Mean Corpuscular Volume 87 fL (80-100); Mean Platelet Volume 9.5 fL (9.1-12.4); NEUTROPHILS PERCENT AUTO 71 % (41-73); Platelet Count 221 K/mm3 (150-400); RDW Coefficient Variation 14.5 % (11.7-14.2); Red Blood Cell Count 4.99 M/mm3 (4.30-5.90); White Blood Cell Count 6.45 K/mm3 (4.00-11.30)
[2024-04-16] MEDS ORDERED: Metoprolol Succinate 50 MG TABCR PO ONE (04:25)
[2024-04-16] MEDS ORDERED: AmLODIPine Besylate 5 MG Tab PO ONE (04:25)
[2024-04-16 04:53] LABS: Albumin, Blood 3.5 g/dL (3.4-5.0); Albumin/Globulin Ratio 1.1 (0.8-1.8); Bilirubin, Total 0.5 mg/dL (0.1-1.0); Bun/Creatinine Ratio 21.8 (12.0-20.0); Creatinine, Blood 0.96 mg/dL (0.60-1.20); Globulin, Blood 3.2 g/dL (2.2-4.0); Potassium, Blood 3.6 mmol/L (3.5-5.5); Thyroid Stimulating Hormone 2.05 uIU/mL (0.360-4.800); Total Protein, Blood 6.7 g/dL (6.4-8.2)
--- NOTE | 2024-04-16 05:37 | NUR ---
SHIFT SUMMARY PATIENT ALERT, ORIENTED x4. ABLE TO MAKE NEEDS KNOWN TO STAFF. BP HYPERTENSIVE, SEE PREVIOUS NOTE. ON TELE AFIB. ON RA DURING THE NIGHT WITH SPO2 >90%. DENIED CHEST PAIN. PATIENT USING URINAL, ADEQUATE OUTPUT. TOLERATING PO. PATIENT MEDICATED PER EMAR FOR GENERALIZED PAIN. NO OTHER CHANGES DURING THE NIGHT, WILL REPORT TO DAY SHIFT RN.
[2024-04-16 06:36] VITALS: BP 155/105
[2024-04-16 07:38] VITALS: BP 156/99
--- NOTE | 2024-04-16 08:45 | NUR ---
MORNING/DC SUMMARY THE PT IS A&OX4, IND IN THE ROOM, AFIB 80'S ON TELE, BP HYPERTENSIVE, THIS WAS DISCUSSED WITH DR. FREDERICK. THE PT WILL FOLLOW UP WITH CARDIOLOGY NEXT WEEK. THE PT WILL NEED A TAVR. THE PT D/C'D AT 0845 THIS MORNING. ALL BELONGINGS WERE SENT WITH THE PT. QUESTIONS ANSWERED ABOUT DISCHARGE. NO FURTHER NOTES.
[2024-04-16] MEDS ORDERED: Isosorbide Mononitrate 60 MG TABCR PO SCH (09:00)
[2024-04-16] MEDS ORDERED: Furosemide 40 MG Tab PO SCH (09:00)
[2024-04-16] MEDS ORDERED: Aspirin 81 MG Chew PO SCH (09:00)
[2024-04-16] MEDS ORDERED: Empagliflozin 25 MG TAB PO SCH (09:00)
[2024-04-16] MEDS ORDERED: AmLODIPine Besylate 5 MG Tab PO SCH (09:00)
[2024-04-16] MEDS ORDERED: Metoprolol Succinate 50 MG TABCR PO SCH (09:00)
[2024-04-16] MEDS ORDERED: Citalopram Hydrobromide 20 MG Tab PO SCH (09:00)
[2024-04-16] MEDS ORDERED: Lisinopril 20 MG Tab PO SCH (09:00)
[2024-04-16] MEDS ORDERED: Atorvastatin 40 MG Tab PO SCH (09:00)
== END 2024-04-16 08:45 | disposition home or self-care (01) | DRG 281 ==
LOC: ER 09:07 → PCU 11:01
PROVIDERS: Physician Assistant; ADMIT Student in an Organized Health Care Education/Training Program
DX: I21.4 Non-ST elevation (NSTEMI) myocardial infarction (principal); I48.19 Other persistent atrial fibrillation; I50.32 Chronic diastolic (congestive) heart failure; I25.10 Atherosclerotic heart disease of native coronary artery without angina pectoris; I35.0 Nonrheumatic aortic (valve) stenosis; E11.9 Type 2 diabetes mellitus without complications; I11.0 Hypertensive heart disease with heart failure; Z66 Do not resuscitate; E78.5 Hyperlipidemia, unspecified; E66.01 Morbid (severe) obesity due to excess calories; Z85.46 Personal history of malignant neoplasm of prostate; Z95.1 Presence of aortocoronary bypass graft; Z79.01 Long term (current) use of anticoagulants; Z79.890 Hormone replacement therapy; Z79.84 Long term (current) use of oral hypoglycemic drugs; I25.2 Old myocardial infarction; Z95.5 Presence of coronary angioplasty implant and graft; Z68.34 Body mass index [BMI] 34.0-34.9, adult; Z92.3 Personal history of irradiation
CPT/HCPCS: 36415; 80053; 82947; 83735; 84443; 84484; 85025; 85520; 85610; 85730; 93005; 93010; 94762; 99285-25; A9270; C8929; J0360; J1815; Q9957

== ENCOUNTER 2024-07-22 03:20 | Inpatient (IN) | payer OTHER ==
[2024-07-22] VITALS (44 sets, daily range): BP systolic 89–208; BP diastolic 51–153
[~2024-07-22] VITALS: Ht 182.9 cm; Wt 113.9 kg
[~2024-07-22 03:20] MED LIST changes: +POTA10T
[2024-07-22 03:45] LABS: BASOPHILS ABSOLUTE AUTO 0.05 K/mm3 (0.00-0.23); BASOPHILS PERCENT AUTO 1 % (0-2); EOSINOPHILS ABSOLUTE AUTO 0.32 K/mm3 (0.00-0.68); EOSINOPHILS PERCENT AUTO 4 % (0-6); Hematocrit 39.1 % (37.0-53.0); Hemoglobin 13.4 g/dL (13.5-17.5); IMMATURE GRAN ABSOLUTE AUTO 0.03 K/mm3 (0.00-0.10); IMMATURE GRAN PERCENT AUTO 0 % (0-1); LYMPHOCYTES ABSOLUTE AUTO 0.96 K/mm3 (0.84-5.20); LYMPHOCYTES PERCENT AUTO 11 % (21-46); MONOCYTES ABSOLUTE AUTO 0.75 K/mm3 (0.16-1.47); MONOCYTES PERCENT AUTO 9 % (4-13); Mean Corpuscular HGB 30.2 pg (26.0-34.0); Mean Corpuscular HGB Conc 34.3 g/dL (31.5-36.5); Mean Corpuscular Volume 88 fL (80-100); Mean Platelet Volume 9.9 fL (9.1-12.4); NEUTROPHILS ABSOLUTE AUTO 6.48 K/mm3 (1.96-9.15); NEUTROPHILS PERCENT AUTO 76 % (41-73); Platelet Count 209 K/mm3 (150-400); RDW Coefficient Variation 13.9 % (11.7-14.2); RDW Standard Deviation 45.2 fL (35.1-46.3); Red Blood Cell Count 4.44 M/mm3 (4.30-5.90); White Blood Cell Count 8.59 K/mm3 (4.00-11.30)
[2024-07-22 04:06] LABS: Albumin, Blood 3.9 g/dL (3.4-5.0); Albumin/Globulin Ratio 1.1 (0.8-1.8); Bilirubin, Total 0.5 mg/dL (0.1-1.0); Bun/Creatinine Ratio 21.5 (12.0-20.0); Creatinine, Blood 0.89 mg/dL (0.60-1.20); Globulin, Blood 3.6 g/dL (2.2-4.0); Potassium, Blood 3.7 mmol/L (3.5-5.5); Total Protein, Blood 7.5 g/dL (6.4-8.2)
[2024-07-22] MEDS ORDERED: Nitroglycerin 0.4 MG SUBL SL PRN (04:10)
[2024-07-22] MEDS ORDERED: Sodium Nitroprusside 50 MG in Dextrose 5% 250 ML IV SCH (05:10)
[2024-07-22] MEDS ORDERED: Dose Adjust by Pharmacy XX STA ×3 (05:52→22:03)
[2024-07-22 05:54] LABS: Anti-Xa UFH, PHA Monitoring 0.69 IU/mL; International Normalized Ratio 0.89; Prothrombin Time Results 9.6 Sec (9.7-11.5)
[2024-07-22] MEDS ORDERED: Heparin Sodium,Porcine/0.5 NS 500 ML IV SCH (05:55)
[2024-07-22] MEDS ORDERED: Ondansetron HCl 2 MG / ML 2ML Vial IV PRN (06:05)
[2024-07-22] MEDS ORDERED: FentaNYL Citrate 50 MCG/ML 2 ML Injection IV PRN (06:05)
[2024-07-22] MEDS ORDERED: FLU VACC TS2024-25(6MOS UP)/PF 45 MCG/0.5 ML SYRINGE IM ONE (06:05)
[2024-07-22] MEDS ORDERED: Aspirin 81 MG Chew PO SCH (07:00)
[2024-07-22] MEDS ORDERED: Insulin Glargine-Yfgn 100 Unit/mL 3 ML SYR SC SCH (07:00)
[2024-07-22] MEDS ORDERED: Furosemide 10 MG/ML 4ML Vial IV SCH (07:00)
[2024-07-22] MEDS ORDERED: Insulin Human Lispro 100 Units/ML 3ML Syringe SC SCH (07:30)
[2024-07-22] MEDS ORDERED: PLAVIX75 MG PO (08:18)
[2024-07-22] MEDS ORDERED: AmLODIPine Besylate 5 MG Tab PO SCH (09:00)
[2024-07-22] MEDS ORDERED: Atorvastatin 40 MG Tab PO SCH (09:00)
[2024-07-22] MEDS ORDERED: Citalopram Hydrobromide 20 MG Tab PO SCH (09:00)
[2024-07-22] MEDS ORDERED: Metoprolol Succinate 50 MG TABCR PO SCH (09:00)
[2024-07-22] MEDS ORDERED: Lisinopril 20 MG Tab PO SCH (09:00)
[2024-07-22] MEDS ORDERED: THERA-D2000 UNIT PO (10:41)
--- NOTE | 2024-07-22 11:29 | NUR ---
PT ARRIVAL.... PT ARRIVED TO THE UNIT AT 0840. PT IS A&Ox4. PT DENIES ANY CHEST PAIN/PRESSURE AT THIS TIME. PT IS ON 3L NC WITH O2 SATS>98% THIS WAS TITRATED DOWN TO RA WITH O2 SATS>95%. L/S COARSE T/O DIM IN THE BASES. PT IS IN AFIB IN THE 70'S-110'S. PT IS IN A HEPARIN GTT RUNNING PER ORDERS. PT WAS ON A NITROPRUSSIDE GTT BUT THIS WAS STOPPED AT THE TIME OF ADMIT, IT WAS RESTARTED D/T HYPERTENSION WITH SBPs IN THE 190'S. CURRENTLY THE DRIP IS RUNNING AT 0.5MCG/KG/MIN. NO SWELLING OR EDEMA NOTED ON THIS ASSESSMENT. BT PRESENT AND HYPOACTIVE. PT IS USING THE URINAL WHILE IN THE BED AT THIS TIME. EHCO WAS DONE AT THE BEDSIDE.
[2024-07-22] MEDS ORDERED: Heparin Sodium 5000 Units/ML 1ML MDV IV ONE (13:35)
[2024-07-22] MEDS ORDERED: HydrALAZINE HCl 25 MG Tab PO SCH ×2 (15:35→17:00)
--- NOTE | 2024-07-22 17:29 | NUR ---
SHIFT SUMMARY... PT CONTINUES TO DENY ANY CHEST PAIN/PRESSURE. PLANS FOR THE PT TO BE NPO AFTER MIDNIGHT FOR ANGIO TOMORROW PER DR. NELSON. NITROPRUSSIDE GTT CONTINUES AT 0.5MCG/KG/MIN TO KEEP SBPs <140. PT IS IN AFIB W/BBB IN THE 70'S-80'S WITH DIPS DOWN TO THE 40'S-50'S, PROVIDER IS AWARE, PT IS NOT SYMPTOMATIC DURING THESE BRADYCARDIC EPISODES. PT WAS UP TO THE CHAIR FOR APROX 1HR THIS AFTERNOON SBA ASSIST. HEPARIN GTT RUNNING PER ORDERS. CALL LIGHT IN REACH WILL REPORT TO ONCOMING RN.
[2024-07-22] MEDS ORDERED: Spironolactone 25 MG Tab PO SCH (18:00)
--- NOTE | 2024-07-22 19:00 | NUR ---
ASSUMED CARE ASSUMED CARE OF PATIENT AT THIS TIME. PT IS AWAKE AND ALERT. ORIENTED X3. COOPERATIVE WITH CARE. DENIES C/O PAIN OR OTHER DISCOMFORT. DENIES NAUSEA. REPOSITIONS SELF IN BED. MONITOR SHOWS AFIB, RATE 60s-70s. NITROPRUSSIDE INFUSING AT 0.5MCG/KG/MIN TO MAINTAIN SBP 140. O2 2LNC- SATS 92-95%. RESPIRATIONS EVEN AND UNLABORED. DENIES SOB/DYSPNEA. OCCASIONAL NON-PRODUCTIVE COUGH. HEPARIN INFUSING AT 18UNITS/KG/HR PER PHARMACY. SEE SHIFT ASSESSMENT FOR FULL ASSESSMENT.
[2024-07-22] MEDS ORDERED: TraZODone HCl 100 MG Tab PO SCH (21:00)
--- NOTE | 2024-07-22 22:05 | NUR ---
AMA AT APPROXIMATELY 2155, PT GOT OUT OF BED, REMOVED GOWN, ALL MONITORING EQUIPMENT, AND PULLED OUT IV. PT STATES "I'M LEAVING AND YOU CAN'T STOP ME." PT IS BEING IMPULSIVE AND UNCOOPERATIVE. DOES NOT CALM WITH REASSURANCE AND IS NOT REDIRECTABLE. ORIENTED TO SELF, PLACE, AND TO THE YEAR. REFUSES TO STAY IN HOSPITAL. DR. MCCORMICK NOTIFIED OF PT'S WISH TO LEAVE. AMA PAPERS SIGNED BY PATIENT AND THEN HE WAS ESCORTED OUT BY SECURITY.
[2024-07-23] VITALS (70 sets, daily range): BP systolic 95–185; BP diastolic 56–111
[2024-07-23] MEDS ORDERED: Clarify Drug Order XX ONE (03:10)
[2024-07-23 05:48] LABS: BASOPHILS ABSOLUTE AUTO 0.04 K/mm3 (0.00-0.23); BASOPHILS PERCENT AUTO 1 % (0-2); EOSINOPHILS PERCENT AUTO 4 % (0-6); Hematocrit 40.1 % (37.0-53.0); Hemoglobin 13.5 g/dL (13.5-17.5); IMMATURE GRAN ABSOLUTE AUTO 0.03 K/mm3 (0.00-0.10); IMMATURE GRAN PERCENT AUTO 0 % (0-1); LYMPHOCYTES ABSOLUTE AUTO 1.07 K/mm3 (0.84-5.20); LYMPHOCYTES PERCENT AUTO 15 % (21-46); MONOCYTES ABSOLUTE AUTO 0.63 K/mm3 (0.16-1.47); MONOCYTES PERCENT AUTO 9 % (4-13); Mean Corpuscular HGB Conc 33.7 g/dL (31.5-36.5); Mean Corpuscular Volume 89 fL (80-100); Mean Platelet Volume 10.2 fL (9.1-12.4); NEUTROPHILS ABSOLUTE AUTO 5.18 K/mm3 (1.96-9.15); NEUTROPHILS PERCENT AUTO 71 % (41-73); Platelet Count 195 K/mm3 (150-400); RDW Standard Deviation 45.2 fL (35.1-46.3); White Blood Cell Count 7.25 K/mm3 (4.00-11.30)
[2024-07-23 06:11] LABS: Albumin, Blood 3.3 g/dL (3.4-5.0); Albumin/Globulin Ratio 1.1 (0.8-1.8); Bilirubin, Total 0.6 mg/dL (0.1-1.0); Bun/Creatinine Ratio 19.1 (12.0-20.0); Calcium, Blood 8.7 mg/dL (8.5-10.1); Creatinine, Blood 0.78 mg/dL (0.60-1.20); Globulin, Blood 3.1 g/dL (2.2-4.0); Potassium, Blood 3.1 mmol/L (3.5-5.5); Total Protein, Blood 6.4 g/dL (6.4-8.2)
--- NOTE | 2024-07-23 06:23 | NUR ---
SHIFT SUMMARY NO ACUTE CHANGES DURING NOC. SLEPT WHEN UNDISTURBED. ROUSES EASILY TO STIMULI. DENIED C/O CHEST PAIN OR OTHER DISCOMFORT T/O NOC. MONITOR SHOWS AFIB WITH BBB, RATE 60s-70s. OCCASIONALLY DROPS DOWN TO 50s, BUT IS NOT SUSTAINED. LABILE BP. NITROPRUSSIDE TITRATED BETWEEN 0.5-0.75MCG/KG/MIN. NOW INFUSING AT 0.6MCG/KG/MIN. HEPARIN CONTINUES AT 18UNITS/KG/HR PER PHARMACY. PT HAS BEEN NPO SINCE MIDNIGHT. VOIDS USING URINAL. PLAN OF CARE ONGOING. WILL REPORT TO ONCOMING RN WHEN AVAILABLE.
--- NOTE | 2024-07-23 08:00 | NUR ---
AM NOTE ASSUMED CARE OF PATIENT AT 0700. PT AWAKE, CAN FOLLOW COMMANDS, MAKE NEEDS KNOWN. A&O X3.DENIES CHEST PAIN. SOB W/AMBULATION, RECOVERS WELL, WITHIN 2-3 MIN. PT NPO, AWAITING TO GO TO [employer]. HEPARIN RUNNING 18 UNITS/KG/HR. NITROPRUSSIDE AT 0.6MCG/KG/MIN. PT IN AFIB, RATE 60S-70S. SBP 130S-160S. PT USING TOILET W/STAND-BY ASSIST.
[2024-07-23] MEDS ORDERED: Potassium Chloride 40 MEQ in NS 250 ML IV ONE (08:05)
[2024-07-23] MEDS ORDERED: NS 1,000 ML IV ONE ×2 (08:07→08:54)
[2024-07-23] MEDS ORDERED: NS 250 ML IV ONE (08:07)
[2024-07-23] MEDS ORDERED: Verapamil HCL 2.5 MG/ML 2ML Injection ONE (08:07)
[2024-07-23] MEDS ORDERED: Heparin Sodium 1000 Units/ML 10ML MDV ONE (08:07)
[2024-07-23] MEDS ORDERED: Nitroglycerin 2 MG/20 ML BTL ONE (08:08)
[2024-07-23] MEDS ORDERED: Potassium Chloride 20 MEQ TabCR PO ONE (08:35)
--- NOTE | 2024-07-23 08:51 | NUR ---
PATIENT TAKEN BY [employer]ER OPERATOR
[2024-07-23] MEDS ORDERED: FentaNYL Citrate 50 MCG/ML 2 ML Injection ONE (08:53)
[2024-07-23] MEDS ORDERED: Midazolam HCl 1MG / ML 2ML Vial ONE (08:54)
[2024-07-23] MEDS ORDERED: Dose Adjust by Pharmacy XX STA (09:25)
--- NOTE | 2024-07-23 10:21 | NUR ---
PT BROUGHT BACK FROM ON CALL TO ICU @ 1015 PRINTING TABLE HAND AT BEDSIDE
--- NOTE | 2024-07-23 11:04 | NUR ---
PER DR HOLT, HEPARIN TO BE DC'D. PHARMACY NOTIFIED
[2024-07-23 13:31] LABS: Bun/Creatinine Ratio 19.4 (12.0-20.0); Calcium, Blood 8.8 mg/dL (8.5-10.1); Creatinine, Blood 0.77 mg/dL (0.60-1.20); Potassium, Blood 3.6 mmol/L (3.5-5.5)
[2024-07-23] MEDS ORDERED: HYDROmorphone HCl 0.5 MG/0.5 ML SYR IV PRN (14:00)
[2024-07-23] MEDS ORDERED: HYDROmorphone HCl 0.5 MG/0.5 ML SYR IV ONE (14:00)
[2024-07-23] MEDS ORDERED: Sacubitril/Valsartan 49 MG/51 MG Tab PO SCH (17:00)
--- NOTE | 2024-07-23 18:01 | NUR ---
SHIFT SUMMARY PT REMAINS A&O X3. MAKES NEEDS KNOWN AND USES CALL LIGHT APPROPRIATELY. PT WENT TO PROJECT LANDSCAPE ARCHITECT THIS AM. NO NEW FINDINGS. HEPARIN AND NITROPRUSSIDE DRIPS DISCONTINUED PER PROJECT LANDSCAPE ARCHITECT. PER DR. HOLT, MAINTAIN SBP BELOW 150S. SBP HAS MAINTAINED BETWEEN 99-140S SINCE PATIENT RETURNED FROM PROJECT LANDSCAPE ARCHITECT. PTS HEART RATE HAVING FREQUENT DECELERATIONS INTO THE 30S THIS AFTERNOON. DR HOLT AWARE. PTS BP REMAINS LABILE. PT EATING CARDIAC HEALTHY DIET. PER ORDERS, PT TO BE NPO AT MIDNIGHT-RENAL ULTRASOUND TOMORROW MORNING. PT HAS PUREWICK IN PLACE AND TOLERATING WELL. PLAN OF CARE ONGOING. WILL REPORT TO ONCOMING RN.
[2024-07-24] VITALS (48 sets, daily range): BP systolic 65–163; BP diastolic 52–134
[2024-07-24 03:44] LABS: Hematocrit 41.4 % (37.0-53.0); Hemoglobin 14.1 g/dL (13.5-17.5); Mean Corpuscular HGB 30.3 pg (26.0-34.0); Mean Corpuscular HGB Conc 34.1 g/dL (31.5-36.5); Mean Corpuscular Volume 89 fL (80-100); Mean Platelet Volume 9.5 fL (9.1-12.4); Platelet Count 215 K/mm3 (150-400); RDW Coefficient Variation 13.9 % (11.7-14.2); RDW Standard Deviation 45.1 fL (35.1-46.3); Red Blood Cell Count 4.65 M/mm3 (4.30-5.90); White Blood Cell Count 7.08 K/mm3 (4.00-11.30)
[2024-07-24 04:03] LABS: Bun/Creatinine Ratio 24.2 (12.0-20.0); Calcium, Blood 8.4 mg/dL (8.5-10.1); Creatinine, Blood 0.62 mg/dL (0.60-1.20); Potassium, Blood 3.5 mmol/L (3.5-5.5)
--- NOTE | 2024-07-24 05:53 | NUR ---
SHIFT SUMMARY NO ACUTE CHANGES. PT SLEEPING WHEN UNDISTURBED. REPOSITIONS SELF IN BED. MEDICATED WITH DILAUDID 1MG IV X 1 DOSE FOR C/O RIGHT SHOULDER PAIN. ALSO C/O RIGHT-SIDED CHEST PAIN LASTING APPROXIMATELY ONE MINUTE. PT STATES "IT COULD BE INDIGESTION." PAIN RESOLVED ON ITS OWN. RESPIRATIONS EVEN AND UNLABORED AT REST. PT DOES C/O MILD SOB WITH EXERTION. O2 2L NC. MONITOR SHOWS AFIB WITH BBB, RATE 60s-70s. OCCASIONAL EPISODES OF BRADYCARDIA WITH RATES LOW 39. BRADYCARDIA IS NOT SUSTAINED. AFEBRILE. PT HAS BEEN NPO SINCE MIDNIGHT. PUREWICK IN PLACE- YELLOW URINE. LEFT GROIN SITE UNCHANGED WITH DRSG INTACT. PLAN OF CARE ONGOING. WILL REPORT TO ONCOMING RN WHEN AVAILABLE.
--- NOTE | 2024-07-24 08:18 | NUR ---
AM NOTE... ASSUMED CARE OF PT AT 0700, PT IS A&Ox4. PT IS IN AFIB W/BBB IN THE 50'S-60'S WITH DIPS DOWN TO THE 30'S-40'S. PT IS NOT SYMPTOMATIC DURING THESE EPISODES. PT DENIES CHEST PAIN/PRESSURE DURING THIS ASSESSMENT. NO SWELLING OR EDEMA IS NOTED DURING THIS ASSESSMENT. PT IS ON 2L NC DURING SLEEP, O2 SATS>95% ON RA WHILE AWAKE. L/S SLIGHT EXP WHEEZE HEARD ON THE RIGHT UPPER LOBE CLEAR AND DIM T/O THE OTHER LOBES. BT PRESENT AND HYPERACTIVE, ABD IS SOFT AND NONTENDER TO PALPATION. PURWICK IN PLACE AT THIS TIME WILL REASSESS IF NEEDED AFTER RENAL ULTRA SOUND IS DONE THIS AM. LEFT GROIN SITE IS STABLE NO SWELLING, BLEEING OR OOZING NOTED AT THE SITE.
[2024-07-24] MEDS ORDERED: Clopidogrel Bisulfate 75 MG Tab PO SCH (09:00)
[2024-07-24] MEDS ORDERED: Apixaban 5 MG Tab PO SCH (09:00)
[2024-07-24] MEDS ORDERED: Isosorbide Mononitrate 60 MG TABCR PO SCH (09:00)
[2024-07-24] MEDS ORDERED: Empagliflozin 10 MG TAB PO SCH (09:00)
[2024-07-24] MEDS ORDERED: Carvedilol 6.25 MG Tab PO SCH (09:00)
[2024-07-24] MEDS ORDERED: NS 500 ML IV ONE (11:10)
[2024-07-24] MEDS ORDERED: HYDROmorphone HCl/Pf 1MG SYR IV PRN (14:55)
--- NOTE | 2024-07-24 17:07 | NUR ---
SHIFT SUMMARY... AT APROX 1100 THE PT GOT UP TO USE THE TOILET, PT WAS STABLE AND MADE IT TO THE TOILET WITHOUT ISSUE. PT HAD A MED FORMED BROWN BM. ONCE BACK IN THE BED THE PT STARTED TO C/O OF NAUSEA. PT WAS MEDICATED WITH ZOFRAN PER EMAR WITH MINIMAL RESULT. PT THEN STARTED TO C/O OF "FEELING FUNNY." WHEN ASKED TO EXPLAIN THE PT STATED HE WAS SEEING "SPARKLES" IN HIS VISION AND FELT " A LITTLE LIGHT HEADED." PT'S HR WAS STABLE AFIB IN THE 70'S BP WAS HYPOTENSIVE 65/56 MAP 61. PROVIDER WAS NOTIFIED, NEW ORDERS FOR A 500MLS BOLUS OF NS AND TO D/C THE PT'S DOSE OF IMDUR. THE PT'S BP IMPROVED WITH THE BOLUS. PT'S PURWICK WAS D/C'd AND PT IS USING THE URINAL TO VOID. PT IS NOTED TO DESAT DOWN TO 85% AND SLOWLY RECOVER BACK UP TO >95% WHILE SLEEPING, PROVIDERS ARE AWARE 2L NC BEING USED WITH SLEEP. PT HAS DENIED CHEST PAIN T/O THIS SHIFT. PLANS TO D/C HOME TOMORROW.
[2024-07-25 00:06] VITALS: BP 97/84
[2024-07-25 03:48] LABS: Hematocrit 38.1 % (37.0-53.0); Hemoglobin 12.8 g/dL (13.5-17.5); Mean Corpuscular HGB 30.3 pg (26.0-34.0); Mean Corpuscular HGB Conc 33.6 g/dL (31.5-36.5); Mean Corpuscular Volume 90 fL (80-100); Mean Platelet Volume 9.7 fL (9.1-12.4); Platelet Count 208 K/mm3 (150-400); RDW Coefficient Variation 13.9 % (11.7-14.2); RDW Standard Deviation 44.8 fL (35.1-46.3); Red Blood Cell Count 4.23 M/mm3 (4.30-5.90); White Blood Cell Count 6.99 K/mm3 (4.00-11.30)
[2024-07-25 04:05] VITALS: BP 120/83
[2024-07-25 04:18] LABS: Bun/Creatinine Ratio 18.7 (12.0-20.0); Calcium, Blood 8.3 mg/dL (8.5-10.1); Creatinine, Blood 0.96 mg/dL (0.60-1.20); Potassium, Blood 3.6 mmol/L (3.5-5.5)
--- NOTE | 2024-07-25 06:20 | NUR ---
NOC SHIFT SUMMARY NO ACUTE EVENTS OVERNIGHT. PT ALERT/ORIENTED AND COOPERATIVE W/ CARE. PT USING CALL LIGHT APPROPRIATELY. REMAINS ON 2LPM VIA NC W/ SATS>90%. AFIB ON DEAN OF MEN, RATE OF 70-80S. PT STABLE. AFEBRILE. PT USING URINAL AT BEDSIDE. NO BM DURING SHIFT. PT REQUIRED 1 DOSE OF PRN PAIN MEDICATION FOR SHOULDER PAIN W/ GOOD EFFECT. IV IS PATENT AND SALINE LOCKED. CALL LIGHT W/ IN REACH. PLAN OF CARE ONGOING.
[2024-07-25] MEDS ORDERED: Torsemide 20 MG TAB PO SCH (07:00)
[2024-07-25 07:18] VITALS: BP 154/81
--- NOTE | 2024-07-25 07:57 | NUR ---
ASSUMED CARE OF PATIENT AT APPROXIMATELY 0700. REPORT RECEIVED FROM DEBBIE WAGNER. PT AWAKE IN BED, INTERACTING WITH STAFF APPROPRIATELY DURING BEDSIDE REPORT. CONTINUOUS CARDIAC MONITORING IN PLACE SHOWS AFIB, BP STABLE c MAP > 65. ON 2LPM O2 VIA NC WITH SATURATION > 92%. BILATERAL GROIN SITES VISUALIZED, BRUISING AND TENDER TO TOUCH. NO ACUTE NEEDS IDENTIFIED AT THIS TIME. SEE SHIFT ASSESSMENT FOR FULL DETAILS.
[2024-07-25 11:27] VITALS: BP 112/79
[2024-07-25] MEDS ORDERED: Carvedilol6.25 MG PO (12:08)
[2024-07-25] MEDS ORDERED: INSULIN GL100 UNIT/2 SC (12:10)
[2024-07-25] MEDS ORDERED: ENTRESTO 49 MG1 EACH PO (12:11)
[2024-07-25] MEDS ORDERED: TORSE20 PO (12:12)
[2024-07-25] MEDS ORDERED: ALDACTONE25 MG PO (12:12)
--- NOTE | 2024-07-25 12:40 | NUR ---
PT DISCHARGE PAPERWORK REVIEWED AND SIGNED. PT PROVIDED WITH INSTRUCTIONS ON INSULIN ADMINISTRATION. PT ESCORTED TO POV BY PCT AT 1240.
== END 2024-07-25 12:40 | disposition home or self-care (01) | DRG 280 ==
LOC: ER 03:20 → ICUE 03:21 → ERHOLD 03:21 → ICUE 08:44
PROVIDERS: Emergency Medicine; Family Medicine; Internal Medicine; ADMIT Internal Medicine
PROC: B2111ZZ Fluoroscopy of Multiple Coronary Arteries using Low Osmolar Contrast (ICD-10-PCS; principal; 2024-07-23)
PROC: B2131ZZ Fluoroscopy of Multiple Coronary Artery Bypass Grafts using Low Osmolar Contrast (ICD-10-PCS; 2024-07-23)
PROC: B41G1ZZ Fluoroscopy of Left Lower Extremity Arteries using Low Osmolar Contrast (ICD-10-PCS; 2024-07-23)
DX: I21.4 Non-ST elevation (NSTEMI) myocardial infarction (principal); I50.23 Acute on chronic systolic (congestive) heart failure; J96.01 Acute respiratory failure with hypoxia; I48.19 Other persistent atrial fibrillation; I50.32 Chronic diastolic (congestive) heart failure; Z66 Do not resuscitate; E78.5 Hyperlipidemia, unspecified; C61 Malignant neoplasm of prostate; F12.10 Cannabis abuse, uncomplicated; I44.7 Left bundle-branch block, unspecified; I25.10 Atherosclerotic heart disease of native coronary artery without angina pectoris; I11.0 Hypertensive heart disease with heart failure; E66.01 Morbid (severe) obesity due to excess calories; I87.2 Venous insufficiency (chronic) (peripheral); I16.0 Hypertensive urgency; E11.65 Type 2 diabetes mellitus with hyperglycemia; G47.33 Obstructive sleep apnea (adult) (pediatric); I35.0 Nonrheumatic aortic (valve) stenosis; Z79.01 Long term (current) use of anticoagulants; Z95.3 Presence of xenogenic heart valve; Z79.899 Other long term (current) drug therapy; Z95.1 Presence of aortocoronary bypass graft; Z95.5 Presence of coronary angioplasty implant and graft; Z79.890 Hormone replacement therapy; Z98.890 Other specified postprocedural states; Z68.35 Body mass index [BMI] 35.0-35.9, adult; Z79.84 Long term (current) use of oral hypoglycemic drugs
CPT/HCPCS: 36415; 71045; 76937; 80048; 80053; 82947; 83690; 83880; 84484; 85025; 85027; 85520; 85610; 85730; 93005; 93010; 93455; 93975; 96365; 96366; 96368; 96375; 96376; 99152; 99153; 99285-25; A9270; C1760; C1769; C1894; C8929; G0378; J1171; J1644; J1815; J1940; J2250; J2405; J3010; J7030; J7040; J7050; J7060; Q9957; Q9967

== ENCOUNTER 2025-01-09 09:11 | Emergency (ER) | payer OTHER ==
[~2025-01-09] VITALS: Ht 182.9 cm; Wt 109.3 kg
[~2025-01-09 09:11] MED LIST changes: +ALDACTONE25 MG PO; +Carvedilol6.25 MG PO; +ENTRESTO 49 MG1 EACH PO; +INSULIN GL100 UNIT/2 SC; +THERA-D2000 UNIT PO; +TORSE20 PO
[2025-01-09 10:16] LABS: BASOPHILS ABSOLUTE AUTO 0.03 K/mm3 (0.00-0.23); BASOPHILS PERCENT AUTO 1 % (0-2); EOSINOPHILS ABSOLUTE AUTO 0.18 K/mm3 (0.00-0.68); EOSINOPHILS PERCENT AUTO 4 % (0-6); Hematocrit 44.9 % (37.0-53.0); Hemoglobin 15.4 g/dL (13.5-17.5); IMMATURE GRAN ABSOLUTE AUTO 0.02 K/mm3 (0.00-0.10); IMMATURE GRAN PERCENT AUTO 0 % (0-1); LYMPHOCYTES ABSOLUTE AUTO 0.82 K/mm3 (0.84-5.20); LYMPHOCYTES PERCENT AUTO 16 % (21-46); MONOCYTES ABSOLUTE AUTO 0.48 K/mm3 (0.16-1.47); MONOCYTES PERCENT AUTO 9 % (4-13); Mean Corpuscular HGB Conc 34.3 g/dL (31.5-36.5); Mean Corpuscular Volume 88 fL (80-100); NEUTROPHILS ABSOLUTE AUTO 3.55 K/mm3 (1.96-9.15); NEUTROPHILS PERCENT AUTO 70 % (41-73); NRBC ABSOLUTE 0.00 K/mm3 (0.00-0.02); NRBC Auto 0.0 /100 WBC (0.0-0.2); Platelet Count 190 K/mm3 (150-400); RDW Coefficient Variation 14.2 % (11.7-14.2); RDW Standard Deviation 45.7 fL (35.1-46.3)
[2025-01-09 10:45] LABS: Alanine Aminotransfer (ALT/SGP 30.0 U/L (12-78); Albumin, Blood 3.5 g/dL (3.4-5.0); Albumin/Globulin Ratio 1.0 (0.8-1.8); Anion Gap 10.0 mmol/L (3-11); Aspartate Aminotrans (AST/SGOT 70.0 U/L (12-37); Bilirubin, Total 0.4 mg/dL (0.1-1.0); Blood Urea Nitrogen 20.0 mg/dL (8-24); CO2, Blood 25.0 mmol/L (21-32); Calcium, Blood 8.3 mg/dL (8.5-10.1); Chloride, Blood 105.0 mmol/L (98-108); Creatinine, Blood 1.21 mg/dL (0.60-1.20); Globulin, Blood 3.5 g/dL (2.2-4.0); Glucose, Blood 149.0 mg/dL (70-99); Potassium, Blood 3.6 mmol/L (3.5-5.5); Sodium, Blood 136.0 mmol/L (136-145); Total Protein, Blood 7.0 g/dL (6.4-8.2)
[2025-01-09] MEDS ORDERED: Albuterol HFA200 ACT/6.7 GM INH INH ONE (16:30)
[2025-01-09] MEDS ORDERED: METO25ER PO (16:33)
[2025-01-09] MEDS ORDERED: ALBU90OI INH (17:30)
[2025-01-09 17:36] VITALS: BP 109/90
== END 2025-01-09 17:36 | disposition home or self-care (01) ==
LOC: ER 09:11
PROVIDERS: Student in an Organized Health Care Education/Training Program
DX: I11.0 Hypertensive heart disease with heart failure (principal); I50.23 Acute on chronic systolic (congestive) heart failure; I25.10 Atherosclerotic heart disease of native coronary artery without angina pectoris; R79.89 Other specified abnormal findings of blood chemistry; E11.9 Type 2 diabetes mellitus without complications; I25.2 Old myocardial infarction; I48.91 Unspecified atrial fibrillation; Z79.4 Long term (current) use of insulin; Z79.899 Other long term (current) drug therapy; Z79.01 Long term (current) use of anticoagulants; Z95.3 Presence of xenogenic heart valve
CPT/HCPCS: 71046; 71260; 80053; 83880; 84484; 85025; 86141; 93005; 93010; 99285-25; A9270; C8929; Q9957; Q9967